=== PATIENT | female | born 1980 | race Hispanic/Latino ===

== ENCOUNTER 2016-09-11 21:14 | Emergency (ER) | payer OTHER, SELFPAY | END 2016-09-11 21:28 | disposition left against medical advice (07) | LOC: M ED 21:14 | DX: R51 Headache (principal); G51.0 Bell's palsy; F90.9 Attention-deficit hyperactivity disorder, unspecified type; Z53.21 Procedure and treatment not carried out due to patient leaving prior to being seen by health care provider ==

== ENCOUNTER 2016-09-11 21:32 | Outpatient (CLI) | payer OTHER, SELFPAY ==
[2016-09-11 23:01] LABS: MEAN CORPUSCULAR HEMOGLOBIN 23.4 pg (27.0-33.0); MEAN CORPUSCULAR HGB CONC 31.8 g/dl (32.0-36.5); MEAN CORPUSCULAR VOLUME 73.4 fl (80.0-96.0); RED CELL DISTRIBUTION WIDTH 16.2 % (11.5-14.5); WHITE BLOOD COUNT 6.4 K/mm3 (4.0-10.0)
[2016-09-11 23:24] LABS: ALBUMIN 2.7 GM/DL (3.2-5.2); ALBUMIN/GLOBULIN RATIO 0.75 (1.00-1.93); ALKALINE PHOSPHATASE 152 U/L (45-117); ALT/SGPT 12 U/L (12-78); ANION GAP 11 MEQ/L (8-16); AST/SGOT 9 U/L (15-37); BILIRUBIN,TOTAL 0.3 MG/DL (0.2-1.0); BLOOD UREA NITROGEN 6 MG/DL (7-18); CALCIUM LEVEL 9.1 MG/DL (8.5-10.1); CARBON DIOXIDE LEVEL 24 MEQ/L (21-32); CHLORIDE LEVEL 106 MEQ/L (98-107); CREATININE FOR GFR 0.59 MG/DL (0.55-1.02); GLOMERULAR FILTRATION RATE > 60.0 (>60); GLUCOSE, FASTING 81 MG/DL (70-105); POTASSIUM SERUM 3.8 MEQ/L (3.5-5.1); SODIUM LEVEL 141 MEQ/L (136-145); TOTAL PROTEIN 6.3 GM/DL (6.4-8.2); URIC ACID 3.6 MG/DL (2.6-6.0)
== END 2016-09-11 23:30 | disposition home or self-care (01) ==
LOC: M LDO 21:32
PROVIDERS: ATTEND Obstetrics & Gynecology
DX: O99.89 Other specified diseases and conditions complicating pregnancy, childbirth and the puerperium (principal); R51 Headache; R03.0 Elevated blood-pressure reading, without diagnosis of hypertension; H53.9 Unspecified visual disturbance; Z3A.39 39 weeks gestation of pregnancy

== ENCOUNTER → 2016-09-12 | Outpatient (REF) | payer OTHER, SELFPAY | LOC: M LAB REF 15:29 | PROVIDERS: ATTEND Obstetrics & Gynecology | DX: Z36 Encounter for antenatal screening of mother (principal) ==

== ENCOUNTER 2016-09-13 23:10 | Emergency (ER) | payer OTHER, SELFPAY ==
[2016-09-13] MEDS ORDERED: MORPHINE 2 MG/ML 1ML SYRINGE As Ordered ONE (23:50)
[2016-09-14 00:18] LABS: BASO % 0.3 % (0.0-1.0); EOS % 0.6 % (0.0-3.0); LARGE UNSTAINED CELL # 0.2 K/mm3 (0.0-0.4); LARGE UNSTAINED CELL % 2.1 % (0.0-4.0); LYMPH # 1.9 K/mm3 (1.5-4.5); LYMPH % 27.9 % (24.0-44.0); MEAN CORPUSCULAR HEMOGLOBIN 23.1 pg (27.0-33.0); MEAN CORPUSCULAR HGB CONC 31.5 g/dl (32.0-36.5); MEAN CORPUSCULAR VOLUME 73.3 fl (80.0-96.0); MONO # 0.3 K/mm3 (0.0-0.8); MONO % 4.5 % (0.0-5.0); NEUTROPHILS # 4.5 K/mm3 (1.8-7.7); NEUTROPHILS % 64.5 % (36.0-66.0); PLATELET COUNT, AUTOMATED 147 k/mm3 (150-450); RED CELL DISTRIBUTION WIDTH 16.1 % (11.5-14.5); WHITE BLOOD COUNT 6.9 K/mm3 (4.0-10.0)
[2016-09-14 00:27] LABS: ALBUMIN 2.7 GM/DL (3.2-5.2); ALBUMIN/GLOBULIN RATIO 0.63 (1.00-1.93); ALKALINE PHOSPHATASE 157 U/L (45-117); ALT/SGPT 16 U/L (12-78); ANION GAP 9 MEQ/L (8-16); AST/SGOT 10 U/L (15-37); BILIRUBIN,DIRECT < 0.1 MG/DL (0.0-0.2); BILIRUBIN,TOTAL 0.3 MG/DL (0.2-1.0); BLOOD UREA NITROGEN 9 MG/DL (7-18); CALCIUM LEVEL 8.5 MG/DL (8.5-10.1); CARBON DIOXIDE LEVEL 23 MEQ/L (21-32); CHLORIDE LEVEL 106 MEQ/L (98-107); CREATININE FOR GFR 0.71 MG/DL (0.55-1.02); GLOMERULAR FILTRATION RATE > 60.0 (>60); GLUCOSE, FASTING 92 MG/DL (70-105); MAGNESIUM LEVEL 1.8 MG/DL (1.8-2.4); POTASSIUM SERUM 3.6 MEQ/L (3.5-5.1); SODIUM LEVEL 138 MEQ/L (136-145); URIC ACID 4.1 MG/DL (2.6-6.0)
--- NOTE | 2016-09-14 00:40 | REPUSA ---
CLINICAL HISTORY: Murray's palsy. TECHNIQUE: Multiple axial brain CT scan sections were obtained from base to vertex without contrast a dministration. COMMENTS: The study shows normal configuration of sella turcica. There are no intra or extra-axial collections. There is no mass effect or midline shift. There is no evidence of hematoma formation. No hydrocephal us is present. No abnormal calcifications are noted. No significant abnormalities are seen either in the posterior fossa or supratentorial compartment. The sinuses and mastoid air cells are patent. IMPRESSION: No evidence of acute intracranial pathology. Thank you for your kind referral of this patient.
[2016-09-14] MEDS ORDERED: ACETAMINOPHEN 325 MG TAB As Ordered ONE (00:55)
[2016-09-14] MEDS ORDERED: ONDANSETRON 4MG/2ML VIAL (J2405) As Ordered ONE (00:56)
[2016-09-14] MEDS ORDERED: NITROFURANTOIN (MACROBID) 100 MG CAP As Ordered ONE (01:21)
--- NOTE | 2016-09-14 02:29 | EDDOCDS ---
Physician Documentation [facility] Name: Chel Cardoza Age: 35 yrs Sex: Female : 1980 Arrival Date: 09/13/2016 Time: 23:10 Bed 7 Private MD: Osbaldo James [facility] Disposition: 09/14/16 02:04 Discharged to Home/Self Care. Impression: Murray's palsy. - Condition is Stable. - Discharge Instructions: Murray Palsy. - Prescriptions for Prednisone 20 mg Oral Tablet - take 1 tablet by ORAL route as directed Day 1-3: 3 po, day 4-7: 2 po, day 8-10: 1 po; 20 tablet. - Medication Reconciliation, Local Pharmacy Hours form. - Follow up: Osbaldo James OB; When: Call to arrange an appointment; Reason: Continuance of care. Follow up: Petty Harrell MD; When: Call to arrange an appointment; Reason: Continuance of care. - Problem is new. - Symptoms have improved. Historical: - Allergies: no known allergies; - Home Meds: 1. Tylenol PM Oral 2 tablets as needed (Last dose: 09/13/2016 22:30) - PMHx: ADD; Murray's Palsy; Depression; - PSHx: ; - Social history: Smoking status: Patient states was never smoker of tobacco. No barriers to communication noted. - Family history: Not pertinent. - : The pt / caregiver states he / she is not on anticoagulants. Home medication list is obtained from the patient. - Exposure Risk Screening:: None identified. 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 4 in. (162.56 cm) (R); 23:29 BP 145 / 87 (auto/); kas2 23:30 Pulse 100 MON; Pulse Ox 97% ; kas2 23:44 BP 153 / 93 (auto/); kas2 23:45 Pulse 100 MON; Pulse Ox 99% ; kas2 09/14 00:12 BP 180 / 95 (auto/); kas2 00:12 Pulse 106 MON; Pulse Ox 95% ; kas2 00:43 BP 190 / 112 (auto/); kas2 00:43 Pulse 112 MON; Pulse Ox 97% ; kas2 00:51 BP 150 / 82 (auto/); kas2 00:51 Pulse 110 MON; Pulse Ox 99% ; kas2 00:59 BP 126 / 79 (auto/); kas2 00:59 Pulse 110 MON; Pulse Ox 99% ; kas2 01:14 BP 123 / 77 (auto/); kas2 01:14 Pulse 106 MON; Pulse Ox 98% ; kas2 01:14 BP 129 / 54; Pulse 99; Resp 18; Temp 98.0(O); Pulse Ox 100% on R/A; Pain 0/10; kas2 01:28 Pulse 102 MON; Pulse Ox 97% ; kas2 01:29 BP 131 / 58 (auto/); kas2 01:40 BP 139 / 84 (auto/); kas2 01:40 Pulse 110 MON; Pulse Ox 98% ; kas2 09/13 23:12 Body Mass Index 32.27 (85.28 kg, 162.56 cm) dd6 MDM: 09/13 23:49 Ambulance Assistant/Pulse Ox/q 15 min VS ordered. fg 23:49 Heart Tones ordered. fg 23:49 IV Saline Lock x 2 ordered. fg 23:49 Misc Service Delivery Consultant Order ordered. fg 23:49 morphine 2 mg IVP once ordered. fg 23:50 Basic Metabolic Profile Ordered. EDMS 23:50 CBC with Diff Ordered. EDMS 23:50 Liver Profile Ordered. EDMS 23:50 Magnesium Level Ordered. EDMS 23:50 Uric Acid Ordered. EDMS 23:50 Urinalysis Ordered. EDMS 23:50 Urine Random,Creatinine Ordered. EDMS 23:50 CT Head Without Contrast Ordered. EDMS 23:57 Misc Service Delivery Consultant Order complete. jl 09/14 00:53 Ondansetron 4 mg IVP once ordered. fg 00:53 Acetaminophen Tablet 650 mg PO once ordered. fg 01:19 TOTAL PROTEIN,RANDOM URINE Ordered. EDMS 01:44 Financial registration complete. hs2 Administered Medications: 00:18 Not Given (Patient Refused): morphine 2 mg IVP once kas2 01:00 Drug: Ondansetron 4 mg [ondansetron HCl 2 mg/mL intravenous solution (2 mL)] Route: nn1 IVP; Site: right antecubital; 01:00 Drug: Acetaminophen 650 mg [acetaminophen 325 mg tablet (2 tabs)] Route: PO; nn1 Signatures: Dispatcher [employer] EDCandy FortuneRN RN Ynes Evans, Spray Gun Striper Unit Bouchra Donaldson MD MD Whitney Ramirez, [facility] Reg 2 Krystle Tellez RN RN kas2 Nadeem Fatima RN nn1 The chart was reviewed and I authenticate all verbal orders and agree with the evaluation and treatment provided.Corrections: (The following items were deleted from the chart) 09/13 23:59 23:58 IODINE URINE RANDOM ordered. EDMS EDMS 09/14 00:53 00:52 IODINE URINE RANDOM ordered. EDMS EDMS MTDD
--- NOTE | 2016-09-14 02:29 | EDDOCDS ---
Nurse's Notes [facility] Name: Chel Cardoza Age: 35 yrs Sex: Female : 1980 Arrival Date: 09/13/2016 Time: 23:10 Bed 7 Private MD: Osbaldo James [facility] Diagnosis: Murray's palsy Presentation: 09/13 23:18 Presenting complaint: Patient states: noted left facial droop about one hour ago, also [facility] noting headache and lights flashing, reports history of [place] Palsy one year ago with different presentation of neck pain and numbness only. States she is 40-weeks , denies labor pain. The last date and time the patient was known to be well was was at 22:00 on September 13, 2016. An acute neurological deficit is present. The charge nurse has been notified. The patient has been moved to a treatment area. Adult Sepsis Screening: The patient does not have new or worsening altered mentation. Patient's respiratory rate is less than 22. Systolic blood pressure is greater than 100. Patient has a qSOFA score of 0- Negative Sepsis Screen. Suicide/Homicide risk assessment- the patient denies having any suicidal and/or homicidal ideations and does not present with any other emotional, behavioral or mental health complaints. Status: The patient is a dependent. Transition of care: patient was not received from another setting of care. 23:18 Acuity: FARZANA Level 2 [facility] 23:18 Method Of Arrival: Walkin/Carried/Asstd [facility] Triage Assessment: 23:22 The onset of the patients symptoms was less than three hours ago. General: Appears in [facility] no apparent distress, comfortable, Behavior is appropriate for age, cooperative. Pain: Location: head Pain currently is 4 out of 10 on a pain scale. HIV screening NA for this visit Offered previously. Neurological: Level of Consciousness is awake, alert, Oriented to person, place, time, Desulphuring Operator are equal bilaterally Moves all extremities. Gait is steady, Speech is normal, Facial droop on left, Facial symmetry: tongue is midline, Pupils are PERRLA, Reports blurred vision. Respiratory: Airway is patent Respiratory effort is even, unlabored, Respiratory pattern is regular, symmetrical. 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 Tylenol PM Oral 2 tablets as needed (Last dose: 09/13/2016 22:30) - PMHx: ADD; Murray's Palsy; Depression; - PSHx: ; - Social history: Smoking status: Patient states was never smoker of tobacco. No barriers to communication noted. - Family history: Not pertinent. - : The pt / caregiver states he / she is not on anticoagulants. Home medication list is obtained from the patient. - Exposure Risk Screening:: None identified. Screenin:58 Screening information is obtained from the patient. Fall risk: No risks identified. kas2 Assistance ADL's: requires no assistance with activities of daily living. Abuse/DV Screen: The patient / caregiver reports he/she is: not in a situation that causes fear, pain or injury. Nutritional screening: No deficits noted. Advance Directives: Currently, there is no health care proxy. There is no active DNR order. There is no living will. There is no Power of Fretted Instrument Inspector. home support is adequate. Assessment: 23:55 General: Appears in no apparent distress, comfortable, well nourished, well groomed, kas2 Behavior is appropriate for age, cooperative. Pain: Location: head Pain currently is 6 out of 10 on a pain scale. Neurological: Level of Consciousness is awake, alert, Oriented to person, place, time, Desulphuring Operator are equal bilaterally Moves all extremities. Speech is normal, Pupils are PERRLA. Cardiovascular: Capillary refill < 3 seconds Heart tones S1 S2 present Rhythm is sinus rhythm No ectopy. Respiratory: Airway is patent Respiratory effort is even, unlabored, Respiratory pattern is regular, symmetrical, Breath sounds are clear bilaterally. GI: Abdomen is gravid. Derm: Skin is intact, is healthy with good turgor, Skin is dry, Skin is pink, warm & dry. Skin temperature is warm. 23:55 Neurological: Facial droop on left. kas2 09/14 00:19 General: RN started to give morphine 2 mg IV and patient started to develop burning in kas2 her chest. RN stopped and did not give the rest of the morphine IV. Dr. Marquis aware.. 00:41 General: Patient complaining of nausea. BP 190/118 on right side manually and 150/84 on kas2 left side. Dr. Marquis aware. Patient states headache is almost gone. No apparent distress at this time. at bedside. Will continue to monitor.. 01:32 General: Appears in no apparent distress, comfortable, well nourished, well groomed, kas2 Behavior is appropriate for age, cooperative. Pain: Denies pain. Neurological: Level of Consciousness is awake, alert, Oriented to person, place, time, Desulphuring Operator are equal bilaterally Moves all extremities. Speech is normal, Facial droop on left, Pupils are PERRLA. Cardiovascular: Rhythm is sinus rhythm No ectopy. Respiratory: Airway is patent Respiratory effort is even, unlabored, Respiratory pattern is regular, symmetrical, Breath sounds are clear bilaterally. Derm: Skin is intact, is healthy with good turgor, Skin is dry, Skin is pink, warm & dry. Skin temperature is warm. Vital Signs: 09/13 23:12 BP 185 / 94; Pulse 117; Resp 18 S; Temp 97.2(T); Pulse Ox 100% on R/A; Weight 85.28 kg dd6 (R); Height 5 ft. 4 in. (162.56 cm) (R); 23:29 BP 145 / 87 (auto/); kas2 23:30 Pulse 100 MON; Pulse Ox 97% ; [facility] 23:44 BP 153 / 93 (auto/); [facility] 23:45 Pulse 100 MON; Pulse Ox 99% ; [facility] 09/14 00:12 BP 180 / 95 (auto/); kas2 00:12 Pulse 106 MON; Pulse Ox 95% ; kas2 00:43 BP 190 / 112 (auto/); kas2 00:43 Pulse 112 MON; Pulse Ox 97% ; [facility] 00:51 BP 150 / 82 (auto/); kas2 00:51 Pulse 110 MON; Pulse Ox 99% ; [facility] 00:59 BP 126 / 79 (auto/); [facility] 00:59 Pulse 110 MON; Pulse Ox 99% ; [facility] 01:14 BP 123 / 77 (auto/); [facility] 01:14 Pulse 106 MON; Pulse Ox 98% ; [facility] 01:14 BP 129 / 54; Pulse 99; Resp 18; Temp 98.0(O); Pulse Ox 100% on R/A; Pain 0/10; kas2 01:28 Pulse 102 MON; Pulse Ox 97% ; [facility] 01:29 BP 131 / 58 (auto/); kas2 01:40 BP 139 / 84 (auto/); kas2 01:40 Pulse 110 MON; Pulse Ox 98% ; kas2 09/13 23:12 Body Mass Index 32.27 (85.28 kg, 162.56 cm) dd6 Vitals: 09/13 23:12 Log In Time: September 13, 2016 at 23:10. dd6 23:13 RN notified that patient meets Red Flag criteria. dd6 09/14 00:18 Heart Tones 143BPM. kas2 ED Course: 09/13 23:12 Patient visited by Lyndon Fletcher, DAWNA. dd6 23:12 [facility] dd6 23:12 Patient moved to Waiting dd6 23:13 Krystle Tellez RN is Primary Nurse. dt4 23:13 Patient moved to 7 dt4 23:18 Bouchra Marquis MD is Attending Physician. fg 23:18 Patient visited by Bouchra Marquis MD. fg 23:21 Triage Initiated cj 23:54 Basic Metabolic Profile Sent. nn1 23:54 CBC with Diff Sent. nn1 23:54 Liver Profile Sent. nn1 23:58 property assessment monitor on. Pulse ox on. NIBP on. kas2 23:59 Patient visited by Krystle Tellez RN. kas2 23:59 Inserted saline lock: 20 gauge in left antecubital area and blood collected. The kas2 patient tolerated the procedure well. No procedures done that require assistance. 09/14 00:18 Inserted saline lock: 18 gauge in right antecubital area The patient tolerated the kas2 procedure well. 00:20 Patient visited by Krystle Tellez RN. kas2 00:50 CT Head Without Contrast Returned. EDMS 01:05 Patient visited by Krystle Tellez RN. kas2 01:33 Patient visited by Krystle Tellez RN. kas2 02:04 Osbaldo James, OB is Referral Physician. fg 02:04 Petty Harrell MD is Referral Physician. fg 02:26 Discontinued IV bleeding controlled, pressure dressing applied, No redness/swelling at kas2 site. 02:28 Patient visited by Krystle Tellez RN. kas2 02:28 The patient / caregiver is instructed regarding the plan of care and ED course. [facility] Administered Medications: 00:18 Not Given (Patient Refused): morphine 2 mg IVP once kas 01:00 Drug: Ondansetron 4 mg [ondansetron HCl 2 mg/mL intravenous solution (2 mL)] Route: nn1 IVP; Site: right antecubital; 01:00 Drug: Acetaminophen 650 mg [acetaminophen 325 mg tablet (2 tabs)] Route: PO; nn1 Order Results: Lab Order: Basic Metabolic Profile; SPEC'M 09/13/16 23:50 Test: GLUCOSE, FASTING; Value: 92; Range: 70-105; Units: MG/DL; Status: F Test: BLOOD UREA NITROGEN; Value: 9; Range: 7-18; Units: MG/DL; Status: F Test: CREATININE FOR GFR; Value: 0.71; Range: 0.55-1.02; Units: MG/DL; Status: F Test: GLOMERULAR FILTRATION RATE; Value: > 60.0; Range: >60; Status: F Test: SODIUM LEVEL; Value: 138; Range: 136-145; Units: MEQ/L; Status: F Test: POTASSIUM SERUM; Value: 3.6; Range: 3.5-5.1; Units: MEQ/L; Status: F Test: CHLORIDE LEVEL; Value: 106; Range: 98-107; Units: MEQ/L; Status: F Test: CARBON DIOXIDE LEVEL; Value: 23; Range: 21-32; Units: MEQ/L; Status: F Test: ANION GAP; Value: 9; Range: 8-16; Units: MEQ/L; Status: F Test: CALCIUM LEVEL; Value: 8.5; Range: 8.5-10.1; Units: MG/DL; Status: F Test Note: ; Units are mL/min/1.73 m2 Chronic Kidney Disease Staging per NKF: Stage I & II GFR >=60 Normal to Mildly Decreased Stage III GFR 30-59 Moderately Decreased Stage IV GFR 15-29 Severely Decreased Stage V GFR <15 Very Little GFR Left ESRD GFR <15 on WORLD RENOWNED 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 AND 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 OWNER Lab Order: CBC with Diff; SPEC'M 09/13/16 23:50 Test: WHITE BLOOD COUNT; Value: 6.9; Range: 4.0-10.0; Units: K/mm3; Status: F Test: RED BLOOD COUNT; Value: 4.28; Range: 4.00-5.40; Units: M/mm3; Status: F Test: HEMOGLOBIN; Value: 9.9; Range: 12.0-16.0; Abnormal: Below low normal; Units: g/dl; Status: F Test: HEMATOCRIT; Value: 31.4; Range: 36.0-47.0; Abnormal: Below low normal; Units: %; Status: F Test: MEAN CORPUSCULAR VOLUME; Value: 73.3; Range: 80.0-96.0; Abnormal: Below low normal; Units: fl; Status: F Test: MEAN CORPUSCULAR HEMOGLOBIN; Value: 23.1; Range: 27.0-33.0; Abnormal: Below low normal; Units: pg; Status: F Test: MEAN CORPUSCULAR HGB CONC; Value: 31.5; Range: 32.0-36.5; Abnormal: Below low normal; Units: g/dl; Status: F Test: RED CELL DISTRIBUTION WIDTH; Value: 16.1; Range: 11.5-14.5; Abnormal: Above high normal; Units: %; Status: F Test: PLATELET COUNT, AUTOMATED; Value: 147; Range: 150-450; Abnormal: Below low normal; Units: k/mm3; Status: F Test: NEUTROPHILS %; Value: 64.5; Range: 36.0-66.0; Units: %; Status: F Test: LYMPH %; Value: 27.9; Range: 24.0-44.0; Units: %; Status: F Test: MONO %; Value: 4.5; Range: 0.0-5.0; Units: %; Status: F Test: EOS %; Value: 0.6; Range: 0.0-3.0; Units: %; Status: F Test: BASO %; Value: 0.3; Range: 0.0-1.0; Units: %; Status: F Test: LARGE UNSTAINED CELL %; Value: 2.1; Range: 0.0-4.0; Units: %; Status: F Test: NEUTROPHILS #; Value: 4.5; Range: 1.8-7.7; Units: K/mm3; Status: F Test: LYMPH #; Value: 1.9; Range: 1.5-4.5; Units: K/mm3; Status: F Test: MONO #; Value: 0.3; Range: 0.0-0.8; Units: K/mm3; Status: F Test: EOS #; Value: 0.0; Range: 0.0-0.50; Units: K/mm3; Status: F Test: BASO #; Value: 0.0; Range: 0.0-0.2; Units: K/mm3; Status: F Test: LARGE UNSTAINED CELL #; Value: 0.2; Range: 0.0-0.4; Units: K/mm3; Status: F Lab Order: Liver Profile; [facility]09/13[facility]16 23:50 Test: AST/SGOT; Value: 10; Range: 15-37; Abnormal: Below low normal; Units: U/L; Status: F Test: ALT/SGPT; Value: 16; Range: 12-78; Units: U/L; Status: F Test: ALKALINE PHOSPHATASE; Value: 157; Range: 45-117; Abnormal: Above high normal; Units: U/L; Status: F Test: BILIRUBIN,TOTAL; Value: 0.3; Range: 0.2-1.0; Units: MG/DL; Status: F Test: BILIRUBIN,DIRECT; Value: < 0.1; Range: 0.0-0.2; Units: MG/DL; Status: F Test: TOTAL PROTEIN; Value: 7.0; Range: 6.4-8.2; Units: GM/DL; Status: F Test: ALBUMIN; Value: 2.7; Range: 3.2-5.2; Abnormal: Below low normal; Units: GM/DL; Status: F Test: ALBUMIN/GLOBULIN RATIO; Value: 0.63; Range: 1.00-1.93; Abnormal: Below low normal; Status: F Lab Order: Magnesium Level; 09/13/16 23:50 Test: MAGNESIUM LEVEL; Value: 1.8; Range: 1.8-2.4; Units: MG/DL; Status: F Lab Order: Uric Acid; 09/13/16 23:50 Test: URIC ACID; Value: 4.1; Range: 2.6-6.0; Units: MG/DL; Status: F Lab Order: Urinalysis; 09/13/16 23:50 Test: APPEARANCE, URINE; Value: CLEAR; Range: CLEAR; Status: F Test: COLOR, URINE; Value: STRAW; Range: YELLOW; Status: F Test: PH,URINE; Value: 6.0; Range: 5.0-9.0; Units: UNITS; Status: F Test: SPECIFIC GRAVITY URINE AUTO; Value: 1.005; Range: 1.002-1.035; Status: F Test: PROTEIN, URINE AUTO; Value: NEGATIVE; Range: NEGATIVE; Units: mg/dL; Status: F Test: GLUCOSE, URINE (UA) AUTO; Value: NEGATIVE; Range: NEGATIVE; Units: mg/dL; Status: F Test: KETONE, URINE AUTO; Value: NEGATIVE; Range: NEGATIVE; Units: mg/dL; Status: F Test: UROBILINOGEN, URINE AUTO; Value: 0.2; Range: 0.0-2.0; Units: mg/dL; Status: F Test: BILIRUBIN, URINE AUTO; Value: NEGATIVE; Range: NEGATIVE; Status: F Test: NITRITE, URINE AUTO; Value: NEGATIVE; Range: NEGATIVE; Status: F Test: LEUKOCYTE ESTERASE, URINE AUTO; Value: NEGATIVE; Range: NEGATIVE; Status: F Test: BLOOD, URINE BLOOD; Value: NEGATIVE; Range: NEGATIVE; Status: F Test: WBC, URINE AUTO; Value: 0; Range: 0-3; Units: /HPF; Status: F Test: RBC, URINE AUTO; Value: 1; Range: 0-3; Units: /HPF; Status: F Test: BACTERIA, URINE AUTO; Value: 2+; Range: NEGATIVE; Abnormal: Above high normal; Status: F Test: SQUAMOUS EPITHELIAL CELL UR AU; Value: 3; Range: 0-6; Units: /HPF; Status: F Test: HYALINE CAST, URINE AUTO; Value: 0; Range: 0-1; Units: /LPF; Status: F Lab Order: Urine Random,Creatinine; SPEC'M 09/13/16 23:50 Test: CREATININE,RANDOM URINE; Value: 41.3; Units: MG/DL; Status: F Lab Order: TOTAL PROTEIN,RANDOM URINE; SPEC'M 09/13/16 23:50 Test: TOTAL PROTEIN,RANDOM URINE; Value: 5.4; Range: 0.0-12.0; Units: MG/DL; Status: F Radiology Order: CT Head Without Contrast Test: CT Head Without Contrast REASON FOR EXAMINATION: headache, murray's palsy symptoms; ; CLINICAL HISTORY: Murray's palsy.; TECHNIQUE: Multiple axial brain CT scan sections were obtained from base to vertex without contrast a; dministration.; COMMENTS:; The study shows normal configuration of sella turcica. There are no intra or extra-axial collections.; There is no mass effect or midline shift. There is no evidence of hematoma formation. No hydrocephal; us is present. No abnormal calcifications are noted.; No significant abnormalities are seen either in the posterior fossa or supratentorial compartment.; The sinuses and mastoid air cells are patent.; IMPRESSION:; No evidence of acute intracranial pathology.; Thank you for your kind referral of this patient.; ; Outcome: 02:04 Discharge ordered by Provider. 02:26 Discharge Assessment: patient administered narcotics - no. The following High Risk kas2 Discharge criteria are identified: None. Discharged to home with significant other. Condition: good Condition: stable Condition: improved. CT Study completed. Property :Personal belongings accompany Pt. 02:28 Patient left the ED. kas2 Signatures: Dispatcher [employer] EDMS Lyndon Fletcher PCA PASSENGER CAR CLEANING SUPERVISOR dd6 Candy Hogue,RN RN [facility] Jerri Mckeon PA-C PA-C dt4 Nadeem FatimaRN RN nn1 Bouchra Marquis MD MD fg Smith, KimRN RN kas2 MTDD
--- NOTE | 2016-09-16 03:29 | EDDOCDS ---
Nurse's Notes [facility] Name: Chel Cardoza Age: 35 yrs Sex: Female : 1980 Arrival Date: 09/13/2016 Time: 23:10 Bed 7 Private MD: Osbaldo James [facility] Diagnosis: Murray's palsy Presentation: 09/13 23:18 Presenting complaint: Patient states: noted left facial droop about one hour ago, also [facility] noting headache and lights flashing, reports history of [place] Palsy one year ago with different presentation of neck pain and numbness only. States she is 40-weeks , denies labor pain. The last date and time the patient was known to be well was was at 22:00 on September 13, 2016. An acute neurological deficit is present. The charge nurse has been notified. The patient has been moved to a treatment area. Adult Sepsis Screening: The patient does not have new or worsening altered mentation. Patient's respiratory rate is less than 22. Systolic blood pressure is greater than 100. Patient has a qSOFA score of 0- Negative Sepsis Screen. Suicide/Homicide risk assessment- the patient denies having any suicidal and/or homicidal ideations and does not present with any other emotional, behavioral or mental health complaints. Status: The patient is a dependent. Transition of care: patient was not received from another setting of care. 23:18 Acuity: FARZANA Level 2 [facility] 23:18 Method Of Arrival: Walkin/Carried/Asstd [facility] Triage Assessment: 23:22 The onset of the patients symptoms was less than three hours ago. General: Appears in [facility] no apparent distress, comfortable, Behavior is appropriate for age, cooperative. Pain: Location: head Pain currently is 4 out of 10 on a pain scale. HIV screening NA for this visit Offered previously. Neurological: Level of Consciousness is awake, alert, Oriented to person, place, time, Rn Social Services are equal bilaterally Moves all extremities. Gait is steady, Speech is normal, Facial droop on left, Facial symmetry: tongue is midline, Pupils are PERRLA, Reports blurred vision. Respiratory: Airway is patent Respiratory effort is even, unlabored, Respiratory pattern is regular, symmetrical. 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 Gestational age from LMP: 40 weeks 1 day Historical: - Allergies: no known allergies; - Home Meds: 1. Tylenol PM Oral 2 tablets as needed (Last dose: 09/13/2016 22:30) - PMHx: ADD; Murray's Palsy; Depression; - PSHx: ; - Social history: Smoking status: Patient states was never smoker of tobacco. No barriers to communication noted. - Family history: Not pertinent. - : The pt / caregiver states he / she is not on anticoagulants. Home medication list is obtained from the patient. - Exposure Risk Screening:: None identified. Screenin:58 Screening information is obtained from the patient. Fall risk: No risks identified. kas2 Assistance ADL's: requires no assistance with activities of daily living. Abuse/DV Screen: The patient / caregiver reports he/she is: not in a situation that causes fear, pain or injury. Nutritional screening: No deficits noted. Advance Directives: Currently, there is no health care proxy. There is no active DNR order. There is no living will. There is no Power of Court Clerk. home support is adequate. Assessment: 23:55 General: Appears in no apparent distress, comfortable, well nourished, well groomed, kas2 Behavior is appropriate for age, cooperative. Pain: Location: head Pain currently is 6 out of 10 on a pain scale. Neurological: Level of Consciousness is awake, alert, Oriented to person, place, time, Rn Social Services are equal bilaterally Moves all extremities. Speech is normal, Pupils are PERRLA. Cardiovascular: Capillary refill < 3 seconds Heart tones S1 S2 present Rhythm is sinus rhythm No ectopy. Respiratory: Airway is patent Respiratory effort is even, unlabored, Respiratory pattern is regular, symmetrical, Breath sounds are clear bilaterally. GI: Abdomen is gravid. Derm: Skin is intact, is healthy with good turgor, Skin is dry, Skin is pink, warm & dry. Skin temperature is warm. 23:55 Neurological: Facial droop on left. kas2 09/14 00:19 General: RN started to give morphine 2 mg IV and patient started to develop burning in kas2 her chest. RN stopped and did not give the rest of the morphine IV. Dr. Marquis aware.. 00:41 General: Patient complaining of nausea. BP 190/118 on right side manually and 150/84 on kas2 left side. Dr. Marquis aware. Patient states headache is almost gone. No apparent distress at this time. at bedside. Will continue to monitor.. 01:32 General: Appears in no apparent distress, comfortable, well nourished, well groomed, kas2 Behavior is appropriate for age, cooperative. Pain: Denies pain. Neurological: Level of Consciousness is awake, alert, Oriented to person, place, time, Rn Social Services are equal bilaterally Moves all extremities. Speech is normal, Facial droop on left, Pupils are PERRLA. Cardiovascular: Rhythm is sinus rhythm No ectopy. Respiratory: Airway is patent Respiratory effort is even, unlabored, Respiratory pattern is regular, symmetrical, Breath sounds are clear bilaterally. Derm: Skin is intact, is healthy with good turgor, Skin is dry, Skin is pink, warm & dry. Skin temperature is warm. Vital Signs: 09/13 23:12 BP 185 / 94; Pulse 117; Resp 18 S; Temp 97.2(T); Pulse Ox 100% on R/A; Weight 85.28 kg dd6 (R); Height 5 ft. 4 in. (162.56 cm) (R); 23:29 BP 145 / 87 (auto/); kas2 23:30 Pulse 100 MON; Pulse Ox 97% ; [facility] 23:44 BP 153 / 93 (auto/); [facility] 23:45 Pulse 100 MON; Pulse Ox 99% ; [facility] 09/14 00:12 BP 180 / 95 (auto/); kas2 00:12 Pulse 106 MON; Pulse Ox 95% ; kas2 00:43 BP 190 / 112 (auto/); kas2 00:43 Pulse 112 MON; Pulse Ox 97% ; [facility] 00:51 BP 150 / 82 (auto/); kas2 00:51 Pulse 110 MON; Pulse Ox 99% ; [facility] 00:59 BP 126 / 79 (auto/); [facility] 00:59 Pulse 110 MON; Pulse Ox 99% ; [facility] 01:14 BP 123 / 77 (auto/); [facility] 01:14 Pulse 106 MON; Pulse Ox 98% ; [facility] 01:14 BP 129 / 54; Pulse 99; Resp 18; Temp 98.0(O); Pulse Ox 100% on R/A; Pain 0/10; kas2 01:28 Pulse 102 MON; Pulse Ox 97% ; [facility] 01:29 BP 131 / 58 (auto/); kas2 01:40 BP 139 / 84 (auto/); kas2 01:40 Pulse 110 MON; Pulse Ox 98% ; kas2 09/13 23:12 Body Mass Index 32.27 (85.28 kg, 162.56 cm) dd6 Vitals: 09/13 23:12 Log In Time: September 13, 2016 at 23:10. dd6 23:13 RN notified that patient meets Red Flag criteria. dd6 09/14 00:18 Heart Tones 143BPM. kas2 ED Course: 09/13 23:12 Patient visited by Lyndon Fletcher, DAWNA. dd6 23:12 [facility] dd6 23:12 Patient moved to Waiting dd6 23:13 Krystle Tellez RN is Primary Nurse. dt4 23:13 Patient moved to 7 dt4 23:18 Bouchra Marquis MD is Attending Physician. fg 23:18 Patient visited by Bouchra Marquis MD. fg 23:21 Triage Initiated cj 23:54 Basic Metabolic Profile Sent. nn1 23:54 CBC with Diff Sent. nn1 23:54 Liver Profile Sent. nn1 23:58 cube cutter on. Pulse ox on. NIBP on. kas2 23:59 Patient visited by Krystle Tellez RN. kas2 23:59 Inserted saline lock: 20 gauge in left antecubital area and blood collected. The kas2 patient tolerated the procedure well. No procedures done that require assistance. 09/14 00:18 Inserted saline lock: 18 gauge in right antecubital area The patient tolerated the kas2 procedure well. 00:20 Patient visited by Krystle Tellez RN. kas2 00:50 CT Head Without Contrast Returned. EDMS 01:05 Patient visited by Krystle Tellez RN. kas2 01:33 Patient visited by Krystle Tellez RN. kas2 02:04 Osbaldo James, OB is Referral Physician. fg 02:04 Petty Harrell MD is Referral Physician. fg 02:26 Discontinued IV bleeding controlled, pressure dressing applied, No redness/swelling at kas2 site. 02:28 Patient visited by Krystle Tellez RN. kas2 02:28 The patient / caregiver is instructed regarding the plan of care and ED course. kas2 03:24 [facility] Payment Agreement was scanned into [employer] and attached to record. hs2 03:32 Patient name changed from Chel\S\M\S\Cardoza\S\ to Chel\S\Sarah\S\Cardoza. EDMS 11:45 T-Sheet-- Draft Copy was scanned into [employer] and attached to record. gb 11:45 Radiology Report was scanned into [employer] and attached to record. gb Administered Medications: 00:18 Not Given (Patient Refused): morphine 2 mg IVP once kas2 01:00 Drug: Ondansetron 4 mg [ondansetron HCl 2 mg/mL intravenous solution (2 mL)] Route: nn1 IVP; Site: right antecubital; 01:00 Drug: Acetaminophen 650 mg [acetaminophen 325 mg tablet (2 tabs)] Route: PO; nn1 Order Results: Lab Order: Basic Metabolic Profile; SPEC'M 09/13/16 23:50 Test: GLUCOSE, FASTING; Value: 92; Range: 70-105; Units: MG/DL; Status: F Test: BLOOD UREA NITROGEN; Value: 9; Range: 7-18; Units: MG/DL; Status: F Test: CREATININE FOR GFR; Value: 0.71; Range: 0.55-1.02; Units: MG/DL; Status: F Test: GLOMERULAR FILTRATION RATE; Value: > 60.0; Range: >60; Status: F Test: SODIUM LEVEL; Value: 138; Range: 136-145; Units: MEQ/L; Status: F Test: POTASSIUM SERUM; Value: 3.6; Range: 3.5-5.1; Units: MEQ/L; Status: F Test: CHLORIDE LEVEL; Value: 106; Range: 98-107; Units: MEQ/L; Status: F Test: CARBON DIOXIDE LEVEL; Value: 23; Range: 21-32; Units: MEQ/L; Status: F Test: ANION GAP; Value: 9; Range: 8-16; Units: MEQ/L; Status: F Test: CALCIUM LEVEL; Value: 8.5; Range: 8.5-10.1; Units: MG/DL; Status: F Test Note: ; Units are mL/min/1.73 m2 Chronic Kidney Disease Staging per NKF: Stage I & II GFR >=60 Normal to Mildly Decreased Stage III GFR 30-59 Moderately Decreased Stage IV GFR 15-29 Severely Decreased Stage V GFR <15 Very Little GFR Left ESRD GFR <15 on SALES REPRESENTATIVE PUBLICATIONS Lab Order: CBC with Diff; SPEC'M 09/13/16 23:50 Test: WHITE BLOOD COUNT; Value: 6.9; Range: 4.0-10.0; Units: K/mm3; Status: F Test: RED BLOOD COUNT; Value: 4.28; Range: 4.00-5.40; Units: M/mm3; Status: F Test: HEMOGLOBIN; Value: 9.9; Range: 12.0-16.0; Abnormal: Below low normal; Units: g/dl; Status: F Test: HEMATOCRIT; Value: 31.4; Range: 36.0-47.0; Abnormal: Below low normal; Units: %; Status: F Test: MEAN CORPUSCULAR VOLUME; Value: 73.3; Range: 80.0-96.0; Abnormal: Below low normal; Units: fl; Status: F Test: MEAN CORPUSCULAR HEMOGLOBIN; Value: 23.1; Range: 27.0-33.0; Abnormal: Below low normal; Units: pg; Status: F Test: MEAN CORPUSCULAR HGB CONC; Value: 31.5; Range: 32.0-36.5; Abnormal: Below low normal; Units: g/dl; Status: F Test: RED CELL DISTRIBUTION WIDTH; Value: 16.1; Range: 11.5-14.5; Abnormal: Above high normal; Units: %; Status: F Test: PLATELET COUNT, AUTOMATED; Value: 147; Range: 150-450; Abnormal: Below low normal; Units: k/mm3; Status: F Test: NEUTROPHILS %; Value: 64.5; Range: 36.0-66.0; Units: %; Status: F Test: LYMPH %; Value: 27.9; Range: 24.0-44.0; Units: %; Status: F Test: MONO %; Value: 4.5; Range: 0.0-5.0; Units: %; Status: F Test: EOS %; Value: 0.6; Range: 0.0-3.0; Units: %; Status: F Test: BASO %; Value: 0.3; Range: 0.0-1.0; Units: %; Status: F Test: LARGE UNSTAINED CELL %; Value: 2.1; Range: 0.0-4.0; Units: %; Status: F Test: NEUTROPHILS #; Value: 4.5; Range: 1.8-7.7; Units: K/mm3; Status: F Test: LYMPH #; Value: 1.9; Range: 1.5-4.5; Units: K/mm3; Status: F Test: MONO #; Value: 0.3; Range: 0.0-0.8; Units: K/mm3; Status: F Test: EOS #; Value: 0.0; Range: 0.0-0.50; Units: K/mm3; Status: F Test: BASO #; Value: 0.0; Range: 0.0-0.2; Units: K/mm3; Status: F Test: LARGE UNSTAINED CELL #; Value: 0.2; Range: 0.0-0.4; Units: K/mm3; Status: F Lab Order: Liver Profile; SPEC'M 09/13/16 23:50 Test: AST/SGOT; Value: 10; Range: 15-37; Abnormal: Below low normal; Units: U/L; Status: F Test: ALT/SGPT; Value: 16; Range: 12-78; Units: U/L; Status: F Test: ALKALINE PHOSPHATASE; Value: 157; Range: 45-117; Abnormal: Above high normal; Units: U/L; Status: F Test: BILIRUBIN,TOTAL; Value: 0.3; Range: 0.2-1.0; Units: MG/DL; Status: F Test: BILIRUBIN,DIRECT; Value: < 0.1; Range: 0.0-0.2; Units: MG/DL; Status: F Test: TOTAL PROTEIN; Value: 7.0; Range: 6.4-8.2; Units: GM/DL; Status: F Test: ALBUMIN; Value: 2.7; Range: 3.2-5.2; Abnormal: Below low normal; Units: GM/DL; Status: F Test: ALBUMIN/GLOBULIN RATIO; Value: 0.63; Range: 1.00-1.93; Abnormal: Below low normal; Status: F Lab Order: Magnesium Level; SPEC'09/13/16 23:50 Test: MAGNESIUM LEVEL; Value: 1.8; Range: 1.8-2.4; Units: MG/DL; Status: F Lab Order: Uric Acid; SPEC'M 09/13/16 23:50 Test: URIC ACID; Value: 4.1; Range: 2.6-6.0; Units: MG/DL; Status: F Lab Order: Urinalysis; SPEC'M 09/13/16 23:50 Test: APPEARANCE, URINE; Value: CLEAR; Range: CLEAR; Status: F Test: COLOR, URINE; Value: STRAW; Range: YELLOW; Status: F Test: PH,URINE; Value: 6.0; Range: 5.0-9.0; Units: UNITS; Status: F Test: SPECIFIC GRAVITY URINE AUTO; Value: 1.005; Range: 1.002-1.035; Status: F Test: PROTEIN, URINE AUTO; Value: NEGATIVE; Range: NEGATIVE; Units: mg/dL; Status: F Test: GLUCOSE, URINE (UA) AUTO; Value: NEGATIVE; Range: NEGATIVE; Units: mg/dL; Status: F Test: KETONE, URINE AUTO; Value: NEGATIVE; Range: NEGATIVE; Units: mg/dL; Status: F Test: UROBILINOGEN, URINE AUTO; Value: 0.2; Range: 0.0-2.0; Units: mg/dL; Status: F Test: BILIRUBIN, URINE AUTO; Value: NEGATIVE; Range: NEGATIVE; Status: F Test: NITRITE, URINE AUTO; Value: NEGATIVE; Range: NEGATIVE; Status: F Test: LEUKOCYTE ESTERASE, URINE AUTO; Value: NEGATIVE; Range: NEGATIVE; Status: F Test: BLOOD, URINE BLOOD; Value: NEGATIVE; Range: NEGATIVE; Status: F Test: WBC, URINE AUTO; Value: 0; Range: 0-3; Units: /HPF; Status: F Test: RBC, URINE AUTO; Value: 1; Range: 0-3; Units: /HPF; Status: F Test: BACTERIA, URINE AUTO; Value: 2+; Range: NEGATIVE; Abnormal: Above high normal; Status: F Test: SQUAMOUS EPITHELIAL CELL UR AU; Value: 3; Range: 0-6; Units: /HPF; Status: F Test: HYALINE CAST, URINE AUTO; Value: 0; Range: 0-1; Units: /LPF; Status: F Lab Order: Urine Random,Creatinine; SPEC'M 09/13/16 23:50 Test: CREATININE,RANDOM URINE; Value: 41.3; Units: MG/DL; Status: F Lab Order: TOTAL PROTEIN,RANDOM URINE; SPEC'M 09/13/16 23:50 Test: TOTAL PROTEIN,RANDOM URINE; Value: 5.4; Range: 0.0-12.0; Units: MG/DL; Status: F Radiology Order: CT Head Without Contrast Test: CT Head Without Contrast REASON FOR EXAMINATION: headache, murray's palsy symptoms; ; CLINICAL HISTORY: Murray's palsy.; TECHNIQUE: Multiple axial brain CT scan sections were obtained from base to vertex without contrast a; dministration.; COMMENTS:; The study shows normal configuration of sella turcica. There are no intra or extra-axial collections.; There is no mass effect or midline shift. There is no evidence of hematoma formation. No hydrocephal; us is present. No abnormal calcifications are noted.; No significant abnormalities are seen either in the posterior fossa or supratentorial compartment.; The sinuses and mastoid air cells are patent.; IMPRESSION:; No evidence of acute intracranial pathology.; Thank you for your kind referral of this patient.; ; Outcome: 02:04 Discharge ordered by Provider. fg 02:26 Discharge Assessment: patient administered narcotics - no. The following High Risk kas2 Discharge criteria are identified: None. Discharged to home with significant other. Condition: good Condition: stable Condition: improved. CT Study completed. Property :Personal belongings accompany Pt. 02:28 Patient left the ED. kas2 Signatures: Dispatcher [employer] EDMS Ritika Roberts, Reg Reg gb Lyndon Fletcher, DAWNA IMPLEMENTATION LEAD dd6 Candy HogueRN RN Jerri Yates PA-C PA-C dt4 Nadeem FatimaRN RN nn1 Bouchra Marquis MD MD fg Stanton, Hillary, Reg Reg hs2 Krystle Tellez RN RN kas2 Chart Complete MTDD
--- NOTE | 2016-09-16 03:29 | EDDOCDS ---
Physician Documentation [facility] Name: Chel Cardoza Age: 35 yrs Sex: Female : 1980 Arrival Date: 09/13/2016 Time: 23:10 Bed 7 Private MD: Osbaldo James [facility] Disposition: 09/14/16 02:04 Discharged to Home/Self Care. Impression: Murray's palsy. - Condition is Stable. - Discharge Instructions: Murray Palsy. - Prescriptions for Prednisone 20 mg Oral Tablet - take 1 tablet by ORAL route as directed Day 1-3: 3 po, day 4-7: 2 po, day 8-10: 1 po; 20 tablet. - Medication Reconciliation, Local Pharmacy Hours form. - Follow up: Osbaldo James OB; When: Call to arrange an appointment; Reason: Continuance of care. Follow up: Petty Harrell MD; When: Call to arrange an appointment; Reason: Continuance of care. - Problem is new. - Symptoms have improved. Historical: - Allergies: no known allergies; - Home Meds: 1. Tylenol PM Oral 2 tablets as needed (Last dose: 09/13/2016 22:30) - PMHx: ADD; Murray's Palsy; Depression; - PSHx: ; - Social history: Smoking status: Patient states was never smoker of tobacco. No barriers to communication noted. - Family history: Not pertinent. - : The pt / caregiver states he / she is not on anticoagulants. Home medication list is obtained from the patient. - Exposure Risk Screening:: None identified. 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 4 in. (162.56 cm) (R); 23:29 BP 145 / 87 (auto/); kas2 23:30 Pulse 100 MON; Pulse Ox 97% ; kas2 23:44 BP 153 / 93 (auto/); kas2 23:45 Pulse 100 MON; Pulse Ox 99% ; kas2 09/14 00:12 BP 180 / 95 (auto/); kas2 00:12 Pulse 106 MON; Pulse Ox 95% ; kas2 00:43 BP 190 / 112 (auto/); kas2 00:43 Pulse 112 MON; Pulse Ox 97% ; kas2 00:51 BP 150 / 82 (auto/); kas2 00:51 Pulse 110 MON; Pulse Ox 99% ; kas2 00:59 BP 126 / 79 (auto/); kas2 00:59 Pulse 110 MON; Pulse Ox 99% ; kas2 01:14 BP 123 / 77 (auto/); kas2 01:14 Pulse 106 MON; Pulse Ox 98% ; kas2 01:14 BP 129 / 54; Pulse 99; Resp 18; Temp 98.0(O); Pulse Ox 100% on R/A; Pain 0/10; kas2 01:28 Pulse 102 MON; Pulse Ox 97% ; kas2 01:29 BP 131 / 58 (auto/); kas2 01:40 BP 139 / 84 (auto/); kas2 01:40 Pulse 110 MON; Pulse Ox 98% ; kas2 09/13 23:12 Body Mass Index 32.27 (85.28 kg, 162.56 cm) dd6 MDM: 09/13 23:49 Literacy Education Professor/Pulse Ox/q 15 min VS ordered. fg 23:49 Heart Tones ordered. fg 23:49 IV Saline Lock x 2 ordered. fg 23:49 Misc Boiler Repairman Order ordered. fg 23:49 morphine 2 mg IVP once ordered. fg 23:50 Basic Metabolic Profile Ordered. EDMS 23:50 CBC with Diff Ordered. EDMS 23:50 Liver Profile Ordered. EDMS 23:50 Magnesium Level Ordered. EDMS 23:50 Uric Acid Ordered. EDMS 23:50 Urinalysis Ordered. EDMS 23:50 Urine Random,Creatinine Ordered. EDMS 23:50 CT Head Without Contrast Ordered. ED[facility] 23:[facility] Order complete. jlm 09/14 00:53 Ondansetron 4 mg IVP once ordered. fg 00:53 Acetaminophen Tablet 650 mg PO once ordered. fg 01:19 TOTAL PROTEIN,RANDOM URINE Ordered. EDMS 01:44 Financial registration complete. hs2 03:24 [facility] Payment Agreement was scanned into [employer] and attached to record. hs2 11:45 T-Sheet-- Draft Copy was scanned into [employer] and attached to record. gb 11:45 Radiology Report was scanned into [employer] and attached to record. gb Administered Medications: 00:18 Not Given (Patient Refused): morphine 2 mg IVP once kas2 01:00 Drug: Ondansetron 4 mg [ondansetron HCl 2 mg/mL intravenous solution (2 mL)] Route: nn1 IVP; Site: right antecubital; 01:00 Drug: Acetaminophen 650 mg [acetaminophen 325 mg tablet (2 tabs)] Route: PO; nn1 Signatures: Dispatcher [employer] EDMS Ritika Roberts, Reg Reg gb Candy HogueRN RN Ynes Evans, [employer] Senior Sergeant Unit jlBouchra Nuñez MD MD Whitney Ramirez, Reg Reg hs2 Krystle Tellez RN RN kas2 Nadeem Fatima RN nn1 The chart was reviewed and I authenticate all verbal orders and agree with the evaluation and treatment provided.Corrections: (The following items were deleted from the chart) 09/13 23:59 23:58 IODINE URINE RANDOM ordered. EDMS EDMS 09/14 00:53 00:52 IODINE URINE RANDOM ordered. EDMS EDMS Attachments: 03:24 [facility] Payment Agreement hs2 11:45 T-Sheet-- Draft Copy gb Chart Complete MTDD
--- NOTE | 2016-09-16 03:29 | EDDOCDS ---
Physician Documentation [facility] Name: Chel Cardoza Age: 35 yrs Sex: Female : 1980 Arrival Date: 09/13/2016 Time: 23:10 Bed 7 Private MD: Osbaldo James [facility] Disposition: 09/14/16 02:04 Discharged to Home/Self Care. Impression: Murray's palsy. - Condition is Stable. - Discharge Instructions: Murray Palsy. - Prescriptions for Prednisone 20 mg Oral Tablet - take 1 tablet by ORAL route as directed Day 1-3: 3 po, day 4-7: 2 po, day 8-10: 1 po; 20 tablet. - Medication Reconciliation, Local Pharmacy Hours form. - Follow up: Osbaldo James OB; When: Call to arrange an appointment; Reason: Continuance of care. Follow up: Petty Harrell MD; When: Call to arrange an appointment; Reason: Continuance of care. - Problem is new. - Symptoms have improved. Historical: - Allergies: no known allergies; - Home Meds: 1. Tylenol PM Oral 2 tablets as needed (Last dose: 09/13/2016 22:30) - PMHx: ADD; Murray's Palsy; Depression; - PSHx: ; - Social history: Smoking status: Patient states was never smoker of tobacco. No barriers to communication noted. - Family history: Not pertinent. - : The pt / caregiver states he / she is not on anticoagulants. Home medication list is obtained from the patient. - Exposure Risk Screening:: None identified. 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 4 in. (162.56 cm) (R); 23:29 BP 145 / 87 (auto/); kas2 23:30 Pulse 100 MON; Pulse Ox 97% ; kas2 23:44 BP 153 / 93 (auto/); kas2 23:45 Pulse 100 MON; Pulse Ox 99% ; kas2 09/14 00:12 BP 180 / 95 (auto/); kas2 00:12 Pulse 106 MON; Pulse Ox 95% ; kas2 00:43 BP 190 / 112 (auto/); kas2 00:43 Pulse 112 MON; Pulse Ox 97% ; kas2 00:51 BP 150 / 82 (auto/); kas2 00:51 Pulse 110 MON; Pulse Ox 99% ; kas2 00:59 BP 126 / 79 (auto/); kas2 00:59 Pulse 110 MON; Pulse Ox 99% ; kas2 01:14 BP 123 / 77 (auto/); kas2 01:14 Pulse 106 MON; Pulse Ox 98% ; kas2 01:14 BP 129 / 54; Pulse 99; Resp 18; Temp 98.0(O); Pulse Ox 100% on R/A; Pain 0/10; kas2 01:28 Pulse 102 MON; Pulse Ox 97% ; kas2 01:29 BP 131 / 58 (auto/); kas2 01:40 BP 139 / 84 (auto/); kas2 01:40 Pulse 110 MON; Pulse Ox 98% ; kas2 09/13 23:12 Body Mass Index 32.27 (85.28 kg, 162.56 cm) dd6 MDM: 09/13 23:49 Shearing Machine Operator/Pulse Ox/q 15 min VS ordered. fg 23:49 Heart Tones ordered. fg 23:49 IV Saline Lock x 2 ordered. fg 23:49 Misc Market Garden Worker Order ordered. fg 23:49 morphine 2 mg IVP once ordered. fg 23:50 Basic Metabolic Profile Ordered. EDMS 23:50 CBC with Diff Ordered. EDMS 23:50 Liver Profile Ordered. EDMS 23:50 Magnesium Level Ordered. EDMS 23:50 Uric Acid Ordered. EDMS 23:50 Urinalysis Ordered. EDMS 23:50 Urine Random,Creatinine Ordered. EDMS 23:50 CT Head Without Contrast Ordered. EDMS 23:57 [facility] Work[facility] Order complete. jlm 09/14 00:53 Ondansetron 4 mg IVP once ordered. fg 00:53 Acetaminophen Tablet 650 mg PO once ordered. fg 01:19 TOTAL PROTEIN,RANDOM URINE Ordered. EDMS 01:44 Financial registration complete. hs2 03:24 [facility] Payment Agreement was scanned into MED[employer] and attached to record. hs2 11:45 T-Sheet-- Draft Copy was scanned into [employer] and attached to record. gb 11:45 Radiology Report was scanned into [employer] and attached to record. gb Administered Medications: 00:18 Not Given (Patient Refused): morphine 2 mg IVP once kas2 01:00 Drug: Ondansetron 4 mg [ondansetron HCl 2 mg/mL intravenous solution (2 mL)] Route: nn1 IVP; Site: right antecubital; 01:00 Drug: Acetaminophen 650 mg [acetaminophen 325 mg tablet (2 tabs)] Route: PO; nn1 Signatures: Dispatcher [employer] EDMS Ritika Roberts, Reg Reg gb Candy HogueRN RN Ynes Evans, Senior Revenue Accountant Unit jlBouchra Nuñez MD MD Whitney Ramirez, Reg Reg hs2 Krystle Tellez RN RN kas2 Nadeem Fatima RN nn1 The chart was reviewed and I authenticate all verbal orders and agree with the evaluation and treatment provided.Corrections: (The following items were deleted from the chart) 09/13 23:59 23:58 IODINE URINE RANDOM ordered. EDMS EDMS 09/14 00:53 00:52 IODINE URINE RANDOM ordered. EDMS EDMS Attachments: 03:24 [facility] Payment Agreement hs2 11:45 T-Sheet-- Draft Copy gb Chart Complete MTDD
== END 2016-09-14 02:28 | disposition home or self-care (01) ==
LOC: M ED 23:10
DX: O99.89 Other specified diseases and conditions complicating pregnancy, childbirth and the puerperium (principal); G51.0 Bell's palsy; R51 Headache; Z3A.40 40 weeks gestation of pregnancy; F90.9 Attention-deficit hyperactivity disorder, unspecified type; O99.343 Other mental disorders complicating pregnancy, third trimester
CPT/HCPCS: 36415; 70450; 80048; 80076; 81001; 82570; 83735; 84156; 84550; 85025; 93041; 96374; 99285; J2405

== ENCOUNTER 2016-09-20 15:50 | Inpatient (IN) | payer OTHER ==
[~2016-09-20] VITALS: Ht 162.6 cm; Wt 86.0 kg
[2016-09-20 16:09] VITALS: BP 124/81
[2016-09-20] MEDS ORDERED: BENA25CA2 PO (16:29)
[2016-09-20 18:06] VITALS: BP 134/76
[2016-09-20 19:02] VITALS: BP 133/77
[2016-09-20] MEDS ORDERED: LACTATED RINGER'S 1000 ML IV ONE (20:00)
[2016-09-20] MEDS ORDERED: LR 1,000 ML IV SCH (20:00)
[2016-09-20] MEDS ORDERED: BICITRA 30ML SOLN UDC PO ONE (20:00)
[2016-09-20] MEDS ORDERED: BUPIVACAINE HCL 0.25% 10 ML VIAL SC ONE (20:00)
[2016-09-20] MEDS ORDERED: ACETAMINOPHEN 650 MG SUPP PR ONE (20:15)
[2016-09-20 20:42] LABS: MEAN CORPUSCULAR HEMOGLOBIN 22.9 pg (27.0-33.0); MEAN CORPUSCULAR HGB CONC 31.1 g/dl (32.0-36.5); MEAN CORPUSCULAR VOLUME 73.4 fl (80.0-96.0); RED CELL DISTRIBUTION WIDTH 16.5 % (11.5-14.5); WHITE BLOOD COUNT 7.3 K/mm3 (4.0-10.0)
[2016-09-20 20:48] VITALS: BP 121/68
--- NOTE | 2016-09-20 21:33 | HPE ---
DATE OF ADMISSION: 09/20/2016 HISTORY: This lady is a 36-year-old 5, para 4, last menstrual period (LMP) 12/08/2015, estimated date of delivery (EDC) 09/13/2016 was admitted for induction of labor being at 41 weeks of gestation. She was represented as having assessment for totac. Her past history is in 1999 spontaneous vaginal delivery at 39 weeks, 7 pounds 14 ounces male. In 2000 spontaneous vaginal delivery 39 weeks, 6 pounds 7 ounces female, but she had a deep venous thrombosis (DVT) in her left leg at 22 weeks gestation. In 2004 at 40 weeks, spontaneous vaginal delivery 7 pounds 12 ounces, induction of labor as a social. In 2010 at 40 and 1 delivered by section a male 8 pounds 2 ounces for nonreassuring heart and failure to progress at 8 cm. Her risk factors is that she has had a previous section and we do not have operative note regards to layer closure. She had a previous history of DVT in the , which has not recurred, but she does have significant left hip pain for which she has been given a belt and physio. She had Murray's palsy and October of 2015 and she had a recent episode suggestive of Murray's palsy 1 week prior to induction of labor; was seen in emergency by neurology as well as having a CT, which was negative and it was put down to an atypical type migraine and it subsequently resolved. She also has a recent ascus Pap with HPV positive in 2014 and she is presently post dates. We reviewed her chart in detail and could not find gonorrhea cultures, therefore we repeated the gonorrhea culture. We also found that in bold letters she had indicated that if she had not gone into labor, that she requested a repeat section and tubal ligation. She denies that she was counseled regarding trial of labor after (TOLAC) up until this point when she came in for TOLAC induction. She was counseled today regarding the risks and benefits of TOLAC, the risks and benefits of repeat section including, but not completely hemorrhage, infection, perforation, , reoperation, remote possibility of hysterectomy, remote possibility of blood transfusion, remote possibility of laceration and fetus ending up in the NICU. We talked about the TOLAC in that there is a small risk of rupture of the uterus at which time there would be an emergency section, possibility of bleeding requiring blood transfusion, the also remote possibility of emergency hysterectomy and compromise ending up in the NICU, although that percentage was significantly less. The patient and her took some time to evaluate their options and elected to go ahead and have a repeat section with bilateral tubal ligation. Reviewed tubal ligation, its failure rate of less than 1% reviewed. The method with Filshie clips were reviewed. The risk of post tubal ligation syndrome reviewed. The risks of pelvic pain, increased bleeding with periods, decreased bleeding with period, increased leukorrhea, decreased leukorrhea. They still decided on having a repeat section and tubal ligation. The rest of the examination; she has a category one strip with no contractions. She is normocephalic, atraumatic. Neck: Full range of motion. Pupils equal and reactive to light. Distal pulses symmetric. No evidence of DVT, pulmonary embolism (PE) or superficial phlebitis. She is wearing sequential and her hip pain is related to movement. She has no wheezes or rhonchi. Her chest is clear bilaterally to bases. No costovertebral angle (CVA) tenderness. Symphysis fundus height is appropriate. The scar is intact and nontender. Four quadrant bowel sounds are noted. Pelvic examination was not performed as she is not in labor and is not having a TOLAC. There is no rashes or lesions or pruritus. She has no evidence to suggest any facial droop, eye lid lag or visual disturbances. She has no arthralgia or myalgia. No complaints of cough, wheezes, shortness of breath or dyspnea on exertion. She has no chest pain. No palpitations. She is not bruising. She is not bleeding. She is neuro complete. She has no history of incontinence, urgency or frequency. No nausea, vomiting, diarrhea or constipation. She has no diabetic issues. 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 Her past surgical history is section. Family history is noncontributory. Past medical history is Murary's palsy in October 2015 and recurrence of atypical migraines less than 1 week ago. She does not smoke, drink or abuse drugs. She is and there is no domestic violence. In summary we have a post age gestation with intense discussion having had come in for a TOLAC and requesting repeat section after discussing with anesthesia, discussing with the OR and discussing with unit, this patient is booked for tomorrow morning 09/21/2016 at 0730 hours. We spent well over an hour with the and the patient in resolving this issue.
[2016-09-20 22:07] VITALS: BP 107/63
[2016-09-21] VITALS (8 sets, daily range): BP systolic 106–131; BP diastolic 56–71
[2016-09-21] MEDS ORDERED: MORPHINE PRES-FREE INJ 10 MG/10 ML VIAL (J2274) As Ordered ONE (07:13)
[2016-09-21] MEDS ORDERED: OXYTOCIN INJ 10 UNITS/ML VIAL (J2590) As Ordered ONE (07:18)
[2016-09-21] MEDS ORDERED: NALOXONE INJ 0.4 MG/1 ML VIAL (J2310) IV PRN ×2 (07:56)
[2016-09-21] MEDS ORDERED: METOCLOPRAMIDE INJ 10MG/2ML VIAL (J2765) IV PRN ×2 (07:56→10:00)
[2016-09-21] MEDS ORDERED: ONDANSETRON 4MG/2ML VIAL (J2405) IV PRN ×2 (07:56→10:00)
[2016-09-21] MEDS ORDERED: NALBUPHINE HCL 10 MG/ML AMP (J2300) IV PRN (07:56)
[2016-09-21] MEDS ORDERED: PHENYLephrine HCL 500 MCG/5 ML (100MCG/ML) SYRINGE (J2370) As Ordered ONE ×2 (08:24→08:37)
[2016-09-21] MEDS ORDERED: METOCLOPRAMIDE INJ 10MG/2ML VIAL (J2765) As Ordered ONE (08:37)
[2016-09-21] MEDS ORDERED: ePHEDrine SULFATE 25 MG/5 ML(5MG/ML) SYRINGE As Ordered ONE (08:37)
[2016-09-21] MEDS ORDERED: dexameTHASONE 4 MG/ML 1ML VIAL (J1100) As Ordered ONE (08:39)
[2016-09-21 08:55] LABS: CORD GAS ABE A -5.7; CORD GAS HCO3 A 23.4 MEQ/L; CORD GAS O2 SAT A 25.9 %; CORD GAS PCO2 A 62.2 mmHg; CORD GAS PH A 7.194 UNITS; CORD GAS PO2 A 16.1 mmHg; CORD GAS SBC A 18.3 MEQ/L; CORD GAS TCO2 A 25.3 MEQ/L
[2016-09-21 08:58] LABS: CORD GAS ABE V -3.8; CORD GAS HCO3 V 22.7 MEQ/L; CORD GAS O2 SAT V 81.9 %; CORD GAS PCO2 V 46.3 mmHg; CORD GAS PH V 7.308 UNITS; CORD GAS PO2 V 38.8 mmHg; CORD GAS TCO2 V 24.1 MEQ/L
[2016-09-21] MEDS ORDERED: ADACEL/BOOSTRIX VACCINE (DIPHTH/PERTUSS/ACELL/TETANUS)0.5ML SYR (90715) IM ONE (09:00)
[2016-09-21] MEDS ORDERED: KETOROLAC 60 MG/2 ML VIAL (J1885) As Ordered ONE (09:12)
[2016-09-21] MEDS ORDERED: DOCUSATE SODIUM 100 MG CAP PO PRN (09:45)
[2016-09-21] MEDS ORDERED: MEASLES,MUMPS,RUBELLA VACCINE INJ (MMR-II) (90707) SC SCH (09:45)
[2016-09-21] MEDS ORDERED: ANUSOL HC CREAM 30GM TOP PRN (09:45)
[2016-09-21] MEDS ORDERED: RHOGAM 300 MCG (1500 IU) INJ (J2790) IM SCH (09:45)
[2016-09-21] MEDS ORDERED: MOM 30ML SUSPENSION UDC PO PRN (09:45)
[2016-09-21] MEDS ORDERED: PERCOCET 5MG/325MG TAB PO PRN ×2 (09:45→10:00)
[2016-09-21] MEDS ORDERED: fentaNYL 100 MCG/2 ML INJECTION (J3010) IV PRN (10:00)
[2016-09-21] MEDS ORDERED: LR 1,000 ML IV SCH (10:00)
--- NOTE | 2016-09-21 13:48 | RO ---
DATE OF PROCEDURE: 09/21/2016 PREOPERATIVE DIAGNOSES: Declined trial of labor after (TOLAC), repeat section, satisfied parity, bilateral tubal ligation by Filshie clip. Risk factors: She had had a previous section, a history of deep venous thrombosis (DVT) in at 21 weeks, Murray palsy with recurrent investigation 1 week ago, severe left hip pain, and postdates. POSTOPERATIVE DIAGNOSES: Declined trial of labor after (TOLAC), repeat section, satisfied parity, bilateral tubal ligation by Filshie clip. Risk factors: She had had a previous section, a history of deep venous thrombosis (DVT) in at 21 weeks, Murray palsy with recurrent investigation 1 week ago, severe left hip pain, and postdates. Plus, true knot in the cord at the umbilicus. SURGEON: Ayo Giles MD SUPERVISOR INSPECTION: Noe Soares ANESTHESIA: Was spinal plus local anesthetic for intraperitoneal procedures. ESTIMATED BLOOD LOSS: 500 mL. DESCRIPTION OF PROCEDURE: Under adequate anesthesia, prepped and draped in the supine position, Durán catheter in the bladder draining clear urine. Ancef 2 grams given preoperatively. Sequentials on board. Time-out performed. Low transverse incision was made through the previous Pfannenstiel incision, passing through abdominal layers, securing hemostasis. We noticed quite difficult because of the scar area and the bleeding in the subcutaneous tissue. On opening the peritoneal cavity, we noticed that the bladder was a bit high anteriorly. This was taken down. There was a thin lower uterine segment. Low transverse incision was made into the uterus. Artificial rupture of membranes (ARM) draining clear liquor. We delivered a live female weighing 7 pounds 8 ounces, 3414 grams. scores of 9 and 10 at 1 and 5 minutes, respectively. Arterial and venous pH were performed. The arterial pH 7.19, base excess -5.7, venous pH 7.30, base excess -3.8. The placenta was manually removed. There was some difficulty, but we did sweep out the membranes and the cavity until clean. The uterus contracted well down on Pitocin. The lower segment was oversewn in two layers, and there was some intermittent [id number] sutures placed because of excessive bleeding. With instrument and pad count correct, we reperitonealized the incisional site. Then, we asked the patient again to verify that she wanted a permanent sterilization. Both tubes were visualized to the fimbriated end. Bilateral Filshie clips applied circumferentially around the tubes. Good hemostasis was secured. The patient had huge varicose veins in the left adnexal area, which were left alone. We then revisited the incisional site, which was clean and dry, and then closed the abdomen. Running stitch for the peritoneum. Same for the fascia. Interrupted subcutaneous. Dexon to the skin. Marcaine 0.25% 10 mL and spray and tape. The patient was then taken to recovery in good condition.
[2016-09-22 02:20] VITALS: BP 111/58
[2016-09-22 07:05] LABS: MEAN CORPUSCULAR HEMOGLOBIN 22.6 pg (27.0-33.0); MEAN CORPUSCULAR HGB CONC 30.7 g/dl (32.0-36.5); MEAN CORPUSCULAR VOLUME 73.7 fl (80.0-96.0); RED CELL DISTRIBUTION WIDTH 16.9 % (11.5-14.5); WHITE BLOOD COUNT 10.4 K/mm3 (4.0-10.0)
[2016-09-22] MEDS: PRENATAL VITAMIN TAB PO SCH (07:55)
[2016-09-22 10:00] VITALS: BP 122/67
[2016-09-22] MEDS ORDERED: ADACEL/BOOSTRIX VACCINE (DIPHTH/PERTUSS/ACELL/TETANUS)0.5ML SYR (90715) IM ONE (12:00)
[2016-09-22] MEDS: PERCOCET 5MG/325MG TAB PO PRN ×2 (13:41→18:38)
[2016-09-22 14:38] VITALS: BP 111/64
[2016-09-22 18:15] VITALS: BP 139/83
[2016-09-22 22:00] VITALS: BP 138/74
[2016-09-23 02:00] VITALS: BP 136/76
[2016-09-23] MEDS: PERCOCET 5MG/325MG TAB PO PRN ×2 (02:00→12:22)
[2016-09-23] MEDS ORDERED: IBUPROFEN 400 MG TAB PO PRN (02:30)
[2016-09-23] MEDS ORDERED: MORPHINE 2 MG/ML 1ML SYRINGE IV PRN (03:45)
--- NOTE | 2016-09-23 04:50 | REPUSA ---
CLINICAL HISTORY: Abdominal pain. COMMENTS: Moderate large bowel fecal stasis. Moderate diffuse gaseous dilation of the remaining bowels. There is no evidence for free air, free fluid, masses, organomegaly or urinary calculi. Mild spondylosis. IMPRESSION: Constipation. Ileus. Thank you for your kind referral of this patient
[2016-09-23 05:46] VITALS: BP 118/64
[2016-09-23] MEDS: PRENATAL VITAMIN TAB PO SCH (09:00)
--- NOTE | 2016-09-23 11:38 | DS.PDOC ---
Discharge Summary General Date of Admission Sep 20, 2016 at 15:50 Date of Discharge [id number] Discharge Summary COMPLICATIONS/CHIEF COMPLAINT: S/P Section and Tubal Ligation at [address] Giles ADMISSION DIAGNOSES: Prior X1, when consented for TOLAC by Dr Giles, she decided on and tubal ligation rather than induction. DISCHARGE DIAGNOSES: ERCS + BTL HOSPITAL COURSE: Admitted at 41 weeks and decided on ERCS + BTL. Uncomplicated surgery and post-op course other than developed some upper abdominal pain and an abdominal XRAY showed a moderate amount of stool. Her discharge was slightly delayed from this morning until later on today until she had defecated. She is now doing so and passing lots of gas. DISCHARGE MEDICATIONS: Motrin, Tylenol, Percocet, Colace, Lanolin-knows to not mix the tylenol and the percocet PHYSICAL EXAMINATION ON DISCHARGE: see prog note from this AM. I also just examined her and her abdomen is not distended and she states that she feels much better than she did overnight. VITAL SIGNS: Please see below. DISCHARGE CONDITION: stable DISPOSITION: to home ACTIVITY: Nothing in the vagina for 6 weeks. Regular diet but add fiber and prunes/prune juice to aid in emptying. No submerging in water her vagina or incision for 4 weeks. No driving for 2 weeks. DISCHARGE PLAN AND INSTRUCTIONS: follow up at 1-2 weeks incision check with Dr Giles and also 6 week visit. Sessions Vital Signs/I&Os Vital Signs Date Time Temp Pulse Resp B/P Pulse Ox O2 Delivery O2 Flow Rate FiO2 09/23/16 05:46 97.8 92 18 118/64 09/23/16 04:30 100 Room Air Medications Scheduled PRN Diphenhydramine HCl (Benadryl) 25 Mg Cap 25 MG PO PRN PRN PRN ITCHING Allergies Coded Allergies: No Known Allergies (Unverified , 09/20/16) SESSIONSBARBI MD Sep 23, 2016 11:38
[2016-09-23] MEDS ORDERED: COLA100C PO (12:15)
[2016-09-23] MEDS ORDERED: PRENTAB9 PO (12:15)
[2016-09-23] MEDS ORDERED: OXYC1TAB23 PO (12:15)
== END 2016-09-23 12:45 | disposition home or self-care (01) | DRG 766 ==
LOC: M LDI 15:50 → M OBS 09-21 11:00
PROVIDERS: ADMIT Obstetrics & Gynecology; ATTEND Obstetrics & Gynecology
PROC: 0UL70DZ Occlusion of Bilateral Fallopian Tubes with Intraluminal Device, Open Approach (ICD-10-PCS; 2016-09-21)
PROC: 10D00Z1 Extraction of Products of Conception, Low, Open Approach (ICD-10-PCS; principal; 2016-09-21 07:43)
DX: O48.0 Post-term pregnancy (principal); Z37.0 Single live birth; Z3A.41 41 weeks gestation of pregnancy; O09.523 Supervision of elderly multigravida, third trimester; O34.211 Maternal care for low transverse scar from previous cesarean delivery; Z30.2 Encounter for sterilization; Z86.718 Personal history of other venous thrombosis and embolism; O69.2XX0 Labor and delivery complicated by other cord entanglement, with compression, not applicable or unspecified

== ENCOUNTER → 2017-02-16 | Outpatient (REF) | payer OTHER ==
[~2017-02-16] MED LIST: BENA25CA2 PO; COLA100C3 PO; OXYC1TAB23 PO; PRENTAB9 PO
== END ==
LOC: M LABNEURO 12:55
PROVIDERS: ATTEND Psychiatry & Neurology Neurology
DX: R79.89 Other specified abnormal findings of blood chemistry (principal)

== ENCOUNTER 2017-03-03 10:59 | Emergency (ER) | payer OTHER ==
[~2017-03-03] VITALS: Ht 162.6 cm; Wt 78.0 kg
[~2017-03-03 10:59] MED LIST changes: -COLA100C3 PO; +COLA100C5 PO
[2017-03-03] MEDS ORDERED: VITA10002 PO (11:08)
[2017-03-03] MEDS ORDERED: diphenhydrAMINE INJ 50MG/ML VIAL (J1200) IV STA (11:35)
[2017-03-03] MEDS ORDERED: METOCLOPRAMIDE INJ 10MG/2ML VIAL (J2765) IV ONE (11:45)
[2017-03-03] MEDS ORDERED: KETOROLAC 30 MG/ML VIAL (J1885) IV ONE (11:45)
[2017-03-03 17:27] VITALS: BP 117/84
--- NOTE | 2017-03-10 09:56 | REP ---
MR BRAIN WITHOUT CONTRAST: HISTORY: Left extremity weakness. COMPARISON: CT 10/31/2016 The examination is available for review at 9:45 a.m. this date. There are no areas of abnormal signal intensity in the brain. There is no intraparenchymal hemorrhage, infarct, mass or midline shift. The ventricular system is normal in appearance. There is no extracerebral collection. Minimal mucosal thickening is present in the ethmoid and right sphenoid sinuses. IMPRESSION: There is no intracranial lesion. Signed by Mainor Paula MD 03/10/2017 10:00 A
[2017-06-07] MEDS ORDERED: ATIV1TAB7 PO (15:35)
== END 2017-03-03 17:28 | disposition home or self-care (01) ==
LOC: M ED 10:59
DX: G43.809 Other migraine, not intractable, without status migrainosus (principal); R20.2 Paresthesia of skin; Z79.899 Other long term (current) drug therapy; Z88.8 Allergy status to other drugs, medicaments and biological substances
CPT/HCPCS: 70551; 96374; 96375; 99283; J1200; J1885; J2765

== ENCOUNTER → 2017-03-14 | Day surgery (SDC) | payer OTHER ==
[~2017-03-14] VITALS: Ht 162.6 cm; Wt 77.6 kg
[~2017-03-14] MED LIST changes: +ASPI1TAB PO; +ATIV1TAB10 PO; +ATIV1TAB7 PO; +BUPIVACAINE HCL 0.25% 30 ML VIAL As Ordered ONE; +CELE10TA PO; +CIPRODEX AS; +EFFE37.527 PO; +FERR1TAB8 PO; +FLUO10CA9 PO; +HYDR-643 PO; +HYDRO50TAB PO; +IODINE STRONG SOLN 15 ML BTL As Ordered ONE; +KLON0.5T PO; +LIDOCAINE 2% INJ 100 MG/5 ML SDV (FOR ANES.) As Ordered ONE; +LIDOCAINE W/EPINEPHRINE 1% 20ML VIAL As Ordered ONE; +LISI10TA4 PO; +LORA1TAB12 PO; +LR 1,000 ML IV ONE; +LR 1,000 ML IV SCH; +MACR100C43 PO; +MIDAZOLAM INJ 2 MG/2 ML VIAL (J2250) As Ordered ONE; +MIDAZOLAM INJ 2 MG/2 ML VIAL (J2250) IV SCH; +ONDANSETRON 4MG/2ML VIAL (J2405) As Ordered ONE; +ONDANSETRON 4MG/2ML VIAL (J2405) IV PRN; +PANT40TA2 PO; +PERCOCET 5MG/325MG TAB As Ordered ONE; +PERCOCET 5MG/325MG TAB PO PRN; +PROP10TAB PO; +PROPOFOL 200 MG/20 ML VIAL As Ordered ONE; +ROCURONIUM BROMIDE 50 MG/5 ML VIAL/SYRINGE As Ordered ONE; +TRAZO50TA PO; +VITA10002 PO; +VITA500T PO; +XANA0.25 PO; +fentaNYL 100 MCG/2 ML INJECTION (J3010) IV PRN; +fentaNYL 250 MCG/5 ML INJECTION (J3010) As Ordered ONE
[2017-03-14 10:07] LABS: MEAN CORPUSCULAR HEMOGLOBIN 25.9 pg (27.0-33.0); MEAN CORPUSCULAR HGB CONC 31.8 g/dl (32.0-36.5); MEAN CORPUSCULAR VOLUME 81.7 fl (80.0-96.0); RED CELL DISTRIBUTION WIDTH 15.2 % (11.5-14.5); WHITE BLOOD COUNT 7.8 K/mm3 (4.0-10.0)
[2017-03-14 10:26] LABS: CONTROL LINE HCG INT CTR LINE PRESENT
[2017-03-14] MEDS: MIDAZOLAM INJ 2 MG/2 ML VIAL (J2250) IV SCH ×2 (13:02→13:15)
[2017-03-14 14:30] VITALS: BP 120/62
--- NOTE | 2017-03-16 10:09 | RO ---
DATE OF PROCEDURE: 03/14/2017 PREPROCEDURE DIAGNOSES: 1. High grade squamous intraepithelial lesions on cervical biopsies. 2. 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 POSTPROCEDURE DIAGNOSES: 1. High grade squamous intraepithelial lesions on cervical biopsies. 2. 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 PROCEDURE: 1. Loop electrical excision procedure. 2. Bilateral salpingectomy via operative laparoscopy. SURGEON: Dr. Darci Peres CONSTRUCTION EQUIPMENT TECHNICIAN: Dr. Delbert Hays ANESTHESIA: General endotracheal. ESTIMATED BLOOD LOSS: 20 mL. DRAINS: 300 mL in Durán. FLUID REPLACEMENT: 1200 mL lactated ringers. SPECIMEN REMOVED: 1. LEEP biopsy specimen. 2. Endocervical curettage. 3. Right fallopian tube with Filshie clip. 4. Left fallopian tube with Filshie clip. INDICATION: Patient had high grade squamous intraepithelial lesions on cervical biopsy after colposcopy. Therefore, indication for LEEP procedure. She also had significant change in her pain status after the tubal ligation despite having undergone a delivery prior to this latest delivery. Patient was convinced that the tubal ligation procedure that she had undergone was causing her to have the pain issues that she was experiencing, therefore, she strongly desired and requested a laparoscopic salpingectomy and removal of the Filshie clips. PREOPERATIVE ANTIBIOTICS: None. DESCRIPTION OF OPERATION: After informed consent for both procedures was obtained in the clinic and confirmed on the morning of surgery and after preoperative review of her labs was performed, the patient was taken to the operating room with an IV in place where general endotracheal anesthesia was easily obtained. She was placed in the low lithotomy position and with no prep prior to the LEEP other than a cervical and vaginal fornix bath with Lugol solution. Speculum was placed. Lugol solution was placed all over the cervix and small area of non-staining cervical tissue was noted. 10 mL of lidocaine with epinephrine was then used to inject circumferentially avoiding the 3 and 9 o'clock vascular feeding areas to the cervix. An 8 mm loop was then attached to the Bovie device and after confirming that the patient was grounded, the LEEP specimen was removed from right to left without difficulty. Specimen was removed tagged at 12 with a suture and endocervical curettage was easily performed. Rollerball cautery was then used to obtain hemostasis for the LEEP cone bed. This was confirmed with inspection for approximately 2-3 minutes. All instruments were removed from the vagina at which time, the patient's vagina and abdomen were prepped in preparation for the operative laparoscopy. Patient's legs were brought down to have the knees almost level with the abdomen and she was prepped and draped as discussed. I then performed a surgical scrub as well (I was only using sterile operating room gloves for the LEEP as it is an office procedure). Patient was draped after the prep in a normal sterile fashion and 0.25% Marcaine without epinephrine was used just below the umbilicus. A 5 mm skin incision was performed tenting up the skin and a trocar was placed into the abdomen in the midline in standard fashion under direct visualization. CO2 insufflation was performed. Pneumoperitoneum was confirmed easily. Patient was placed in Trendelenburg and quick visual exploration of her upper abdomen and lower abdomen revealed normal upper abdomen , however both Filshie clips were scarred to the lateral quiros of the pelvis with obvious scarring and injected tissue surrounding. This presentation was atypical. The patient obvious had an unexpected hyperreaction to the tubal ligation healing process. Two bilateral left and right lower quadrant ports were then placed under direct visualization in the exact same manner into the abdomen just medial to the anterior superior iliac spine. The LigaSure was used to remove each of the fallopian tubes and Filshie clips bilaterally and each specimen was removed through the right lower port which was an 8 mm port. All other ports were 5 mm. Hemostasis was confirmed. A small amount of lysis of adhesions was performed bilaterally and all ports were removed under direct visualization after as much CO2 as possible was allowed to escape the abdomen. URS6 needle with an #0 Vicryl was used to close the right lower quadrant trocar site fascia with a single figure of eight suture and #4-0 Monocryl was used to close all skin suture sites. Dermabond was placed over each site. Speculum was then placed into the vagina and the LEEP cone bed was examined and found to be hemostatic. All instruments were removed. All counts were correct. The patient was awakened from general anesthesia in stable condition. [facility] CENTERClaude
== END | disposition home or self-care (01) ==
LOC: M SDC 09:34
PROVIDERS: ATTEND Obstetrics & Gynecology
DX: R87.613 High grade squamous intraepithelial lesion on cytologic smear of cervix (HGSIL) (principal); R10.2 Pelvic and perineal pain; G43.909 Migraine, unspecified, not intractable, without status migrainosus; M54.9 Dorsalgia, unspecified; F41.9 Anxiety disorder, unspecified; F32.9 Major depressive disorder, single episode, unspecified; R06.83 Snoring; Z86.718 Personal history of other venous thrombosis and embolism; Z86.69 Personal history of other diseases of the nervous system and sense organs
CPT/HCPCS: 36415; 57522; 58661; 84703; 85027; 86850; 86900; 86901; 88302; 88305; 88307; J2250; J2405; J3010

== ENCOUNTER 2017-03-17 14:38 | Emergency (ER) | payer OTHER ==
[~2017-03-17] VITALS: Ht 162.6 cm; Wt 2.2 kg
[~2017-03-17 14:38] MED LIST changes: -ASPI1TAB PO; -ATIV1TAB10 PO; -ATIV1TAB7 PO; -BUPIVACAINE HCL 0.25% 30 ML VIAL As Ordered ONE; -CELE10TA PO; -CIPRODEX AS; -EFFE37.527 PO; -FERR1TAB8 PO; -FLUO10CA9 PO; -HYDR-643 PO; -HYDRO50TAB PO; -IODINE STRONG SOLN 15 ML BTL As Ordered ONE; -KLON0.5T PO; -LIDOCAINE 2% INJ 100 MG/5 ML SDV (FOR ANES.) As Ordered ONE; -LIDOCAINE W/EPINEPHRINE 1% 20ML VIAL As Ordered ONE; -LISI10TA4 PO; -LORA1TAB12 PO; -LR 1,000 ML IV ONE; -LR 1,000 ML IV SCH; -MACR100C43 PO; -MIDAZOLAM INJ 2 MG/2 ML VIAL (J2250) As Ordered ONE; -MIDAZOLAM INJ 2 MG/2 ML VIAL (J2250) IV SCH; -ONDANSETRON 4MG/2ML VIAL (J2405) As Ordered ONE; -ONDANSETRON 4MG/2ML VIAL (J2405) IV PRN; -PANT40TA2 PO; -PERCOCET 5MG/325MG TAB As Ordered ONE; -PERCOCET 5MG/325MG TAB PO PRN; -PROP10TAB PO; -PROPOFOL 200 MG/20 ML VIAL As Ordered ONE; -ROCURONIUM BROMIDE 50 MG/5 ML VIAL/SYRINGE As Ordered ONE; -TRAZO50TA PO; -VITA500T PO; -XANA0.25 PO; -fentaNYL 100 MCG/2 ML INJECTION (J3010) IV PRN; -fentaNYL 250 MCG/5 ML INJECTION (J3010) As Ordered ONE
[2017-03-17] MEDS ORDERED: FIORICET TAB PO ONE (15:30)
[2017-03-17 15:37] LABS: BASO % 0.4 % (0.0-1.0); EOS # 0.1 K/mm3 (0.0-0.50); LARGE UNSTAINED CELL # 0.1 K/mm3 (0.0-0.4); LARGE UNSTAINED CELL % 0.8 % (0.0-4.0); LYMPH # 2.3 K/mm3 (1.5-4.5); LYMPH % 22.9 % (24.0-44.0); MEAN CORPUSCULAR HEMOGLOBIN 25.3 pg (27.0-33.0); MEAN CORPUSCULAR HGB CONC 31.7 g/dl (32.0-36.5); MONO # 0.4 K/mm3 (0.0-0.8); MONO % 3.7 % (0.0-5.0); NEUTROPHILS # 6.9 K/mm3 (1.8-7.7); NEUTROPHILS % 71.1 % (36.0-66.0); PLATELET COUNT, AUTOMATED 324 k/mm3 (150-450); RED CELL DISTRIBUTION WIDTH 15.1 % (11.5-14.5); WHITE BLOOD COUNT 9.8 K/mm3 (4.0-10.0)
[2017-03-17 15:41] LABS: ANION GAP 6 MEQ/L (8-16); BLOOD UREA NITROGEN 8 MG/DL (7-18); CALCIUM LEVEL 9.6 MG/DL (8.5-10.1); CARBON DIOXIDE LEVEL 25 MEQ/L (21-32); CHLORIDE LEVEL 108 MEQ/L (98-107); CREATININE FOR GFR 0.75 MG/DL (0.55-1.02); GLOMERULAR FILTRATION RATE > 60.0 (>60); GLUCOSE, FASTING 103 MG/DL (70-105); SODIUM LEVEL 139 MEQ/L (136-145)
[2017-03-17 15:50] LABS: CONTROL LINE HCG INT CTR LINE PRESENT
--- NOTE | 2017-03-17 16:42 | REP ---
Portable chest: Single view. History: Chest pain. Comparison study: September 23, 2016 Findings: The lungs are well inflated and clear. The pleural angles are sharp. Heart size is normal. EKG electrodes are seen. Pulmonary vasculature is not increased. No significant bony abnormality is appreciated. Oxygen delivery tubing is seen. Impression: Negative portable chest x-ray. Signed by Edil Alanis MD 03/17/2017 04:33 P
[2017-03-17] MEDS ORDERED: LORazepam 1 MG TAB As Ordered ONE (17:36)
[2017-03-17] MEDS ORDERED: MACR100C43 PO ×2 (17:37→21:10)
[2017-03-17] MEDS ORDERED: LORazepam 0.5 MG TAB PO ONE (17:45)
[2017-03-17] MEDS ORDERED: ISOVUE-370 76% 100ML VIAL (Q9967) As Ordered ONE (17:58)
--- NOTE | 2017-03-17 19:00 | REPUSA ---
HISTORY: NO PRIORS. CHEST PAIN, PALPITATIONS. RECENT LAP 03/20. TECHNIQUE: Axial CT imaging of chest with sagittal and coronal reformatted imaging for PE protocol wi th intravenous contrast enhancement. DLP= 511.3 mGy-cm. FINDINGS: Thoracic aorta is normal with no evidence of dissection or aneurysm. Pulmonary arteries ar e normal with no detectable evidence of pulmonary embolism. No mediastinal mass lesion or hilar mass lesions are seen. Lung windows demonstrate clear lungs with no pulmonary mass lesions, infiltrates, cystic lung disease , pneumothorax, or pleural effusion. Bone windows demonstrate no fracture or destructive bony lesion. Bilateral axillary lymph nodes are noted, largest measuring 1.1 cm. Upper abdominal structures are normal. IMPRESSION: 1. No evidence of pulmonary embolism or thoracic aortic aneurysm or dissection. 2. Small bilateral axillary lymphadenopathy noted with lymph nodes measuring 1.1 cm. 3. No mediastinal mass lesions and no pulmonary lesions identified. Negative CT examination of ches t.
[2017-03-17 20:57] VITALS: BP 127/76
--- NOTE | 2017-03-17 21:36 | ECGEPIP ---
Stationary ECG Study [facility] - ED Test Date: 2017-03-17 Pat Name: ROBYN ROBISON Department: Room: - Gender: F Collector Of Port: preeti : 1980 Requested By: RADHIKA De La Garza Order Number: [id number] Reading MD: Kathe Ospina Measurements Intervals [place] Rate: 99 P: 67 KS: 115 QRS: 65 QRSD: 86 T: 63 QT: 353 QTc: 454 Interpretive Statements SINUS RHYTHM WITH SHORT [place] INTERVAL NO PRIOR FOR COMPARISON Electronically Signed On 03-17-2017 21:36:38 EDT by Kathe Ospina
[2017-06-07] MEDS ORDERED: ATIV1TAB7 PO (15:35)
== END 2017-03-17 21:15 | disposition home or self-care (01) ==
LOC: M ED 14:38
DX: R07.9 Chest pain, unspecified (principal); N39.0 Urinary tract infection, site not specified; R06.02 Shortness of breath; R05 Cough; G43.909 Migraine, unspecified, not intractable, without status migrainosus; F41.9 Anxiety disorder, unspecified
CPT/HCPCS: 36415; 71010; 71275; 80048; 81001; 82550; 82553; 84703; 85025; 93005; 99285; Q9967

== ENCOUNTER 2017-04-19 16:47 | Emergency (ER) | payer OTHER ==
[~2017-04-19] VITALS: Ht 162.6 cm; Wt 79.5 kg
[~2017-04-19 16:47] MED LIST changes: +MACR100C43 PO
[2017-04-19] MEDS ORDERED: VITA500T PO (16:58)
[2017-04-19] MEDS ORDERED: FERR1TAB8 PO (16:58)
[2017-04-19] MEDS ORDERED: FLUO10CA9 PO (16:58)
[2017-04-19] MEDS ORDERED: HYDR-643 PO (16:58)
[2017-04-19] MEDS ORDERED: LISI10TA4 PO (16:58)
[2017-04-19] MEDS ORDERED: LORazepam 2 MG TAB PO STA (17:10)
[2017-04-19] MEDS ORDERED: ATIV1TAB10 PO (18:32)
[2017-04-19 19:04] VITALS: BP 129/90
[2017-06-07] MEDS ORDERED: ATIV1TAB7 PO (15:35)
== END 2017-04-19 19:08 | disposition home or self-care (01) ==
LOC: M ED 16:47
DX: F41.9 Anxiety disorder, unspecified (principal); E07.9 Disorder of thyroid, unspecified; R03.0 Elevated blood-pressure reading, without diagnosis of hypertension; Z79.899 Other long term (current) drug therapy; Z88.8 Allergy status to other drugs, medicaments and biological substances

== ENCOUNTER 2017-04-24 08:34 | Emergency (ER) | payer OTHER ==
[~2017-04-24] VITALS: Ht 162.6 cm; Wt 79.5 kg
[~2017-04-24 08:34] MED LIST changes: +ATIV1TAB10 PO; +FERR1TAB8 PO; +FLUO10CA9 PO; +HYDR-643 PO; +LISI10TA4 PO; +VITA500T PO
[2017-04-24] MEDS ORDERED: NS 500 ML IV ONE (09:30)
[2017-04-24] MEDS ORDERED: PANTOPRAZOLE 40MG INJ (PROTONIX) (C9113) IV ONE (09:30)
[2017-04-24 10:00] LABS: BASO % 0.5 % (0.0-1.0); EOS % 0.6 % (0.0-3.0); LARGE UNSTAINED CELL # 0.1 K/mm3 (0.0-0.4); LARGE UNSTAINED CELL % 1.4 % (0.0-4.0); LYMPH # 1.8 K/mm3 (1.5-4.5); LYMPH % 21.6 % (24.0-44.0); MEAN CORPUSCULAR HGB CONC 31.8 g/dl (32.0-36.5); MEAN CORPUSCULAR VOLUME 81.7 fl (80.0-96.0); MONO # 0.4 K/mm3 (0.0-0.8); MONO % 4.8 % (0.0-5.0); NEUTROPHILS # 5.6 K/mm3 (1.8-7.7); NEUTROPHILS % 71.1 % (36.0-66.0); PLATELET COUNT, AUTOMATED 294 k/mm3 (150-450); WHITE BLOOD COUNT 7.9 K/mm3 (4.0-10.0)
[2017-04-24 10:26] LABS: ALBUMIN/GLOBULIN RATIO 1.14 (1.00-1.93); ALKALINE PHOSPHATASE 105 U/L (45-117); ALT/SGPT 15 U/L (12-78); ANION GAP 8 MEQ/L (8-16); AST/SGOT 6 U/L (15-37); BILIRUBIN,DIRECT 0.1 MG/DL (0.0-0.2); BILIRUBIN,TOTAL 0.3 MG/DL (0.2-1.0); BLOOD UREA NITROGEN 8 MG/DL (7-18); CALCIUM LEVEL 9.4 MG/DL (8.5-10.1); CARBON DIOXIDE LEVEL 25 MEQ/L (21-32); CHLORIDE LEVEL 107 MEQ/L (98-107); CREATININE FOR GFR 0.72 MG/DL (0.55-1.02); GLOMERULAR FILTRATION RATE > 60.0 (>60); GLUCOSE, FASTING 100 MG/DL (70-105); SODIUM LEVEL 140 MEQ/L (136-145); TOTAL PROTEIN 7.5 GM/DL (6.4-8.2)
[2017-04-24 10:31] LABS: ERYTHROCYTE SEDIMENTATION RATE 18 mm/hr (0-20)
--- NOTE | 2017-04-24 10:40 | REP ---
CHEST, TWO VIEWS: COMPARISON: 03/17/2017. There is no evidence of acute infiltrate. No pleural effusion is seen. The heart is normal in size. The mediastinal silhouette is unremarkable. The visualized osseous structures are intact. IMPRESSION: No acute pulmonary disease. Signed by Darci Matias MD 04/24/2017 04:01 P
[2017-04-24] MEDS ORDERED: ALPRAZolam 0.25 MG TAB PO ONE (11:30)
[2017-04-24] MEDS ORDERED: PANT40TA2 PO (11:35)
[2017-04-24] MEDS ORDERED: XANA0.25 PO (11:35)
[2017-04-24 11:37] VITALS: BP 122/82
--- NOTE | 2017-04-24 19:40 | ECGEPIP ---
Stationary ECG Study [facility] - ED Test Date: 2017-04-24 Pat Name: ROBYN ROBISON Department: Room: - Gender: F Sock Liner: CLIFF : 1980 Requested By: Kathe Ospina Order Number: [id number] Reading MD: Juan Alberto Morrow Measurements Intervals [place] Rate: 88 P: 59 [place]: 114 QRS: 64 QRSD: 89 T: 74 QT: 369 QTc: 448 Interpretive Statements SINUS RHYTHM WITH SINUS ARRHYTHMIA WITH SHORT [place] INTERVAL INC. RBBB NONSPECIFIC T-WAVE ABNORMALITY Electronically Signed On 04-24-2017 19:40:27 EDT by Juan Alberto Morrow
[2017-06-07] MEDS ORDERED: ATIV1TAB7 PO (15:35)
== END 2017-04-24 11:48 | disposition home or self-care (01) ==
LOC: M ED 08:34
DX: K21.9 Gastro-esophageal reflux disease without esophagitis (principal); F41.9 Anxiety disorder, unspecified; I10 Essential (primary) hypertension; G43.909 Migraine, unspecified, not intractable, without status migrainosus; Z82.49 Family history of ischemic heart disease and other diseases of the circulatory system; Z86.718 Personal history of other venous thrombosis and embolism; Z79.899 Other long term (current) drug therapy; Z88.8 Allergy status to other drugs, medicaments and biological substances
CPT/HCPCS: 71020; 80048; 80076; 82550; 82553; 83690; 84443; 85025; 85652; 86140; 93005; 96374; 99284; C9113

== ENCOUNTER 2017-05-26 08:43 | Inpatient (IN) | payer OTHER ==
[~2017-05-26] VITALS: Ht 162.6 cm; Wt 78.0 kg
[~2017-05-26 08:43] MED LIST changes: +PANT40TA2 PO; +XANA0.25 PO
[2017-05-26] MEDS ORDERED: ASPI1TAB PO (08:51)
[2017-05-26] MEDS ORDERED: EFFE37.527 PO (08:51)
[2017-05-26] MEDS ORDERED: KLON0.5T PO (08:51)
[2017-05-26 10:01] LABS: MEAN CORPUSCULAR HEMOGLOBIN 26.6 pg (27.0-33.0); MEAN CORPUSCULAR HGB CONC 32.8 g/dl (32.0-36.5); MEAN CORPUSCULAR VOLUME 80.9 fl (80.0-96.0); RED CELL DISTRIBUTION WIDTH 14.9 % (11.5-14.5)
[2017-05-26 10:16] LABS: CONTROL LINE HCG INT CTR LINE PRESENT
[2017-05-26 10:21] LABS: METHADONE URINE NEGATIVE (NEGATIVE)
[2017-05-26 10:30] LABS: ALBUMIN/GLOBULIN RATIO 1.05 (1.00-1.93); ALKALINE PHOSPHATASE 117 U/L (45-117); ALT/SGPT 16 U/L (12-78); ANION GAP 8 MEQ/L (8-16); AST/SGOT 5 U/L (15-37); BILIRUBIN,DIRECT 0.1 MG/DL (0.0-0.2); BILIRUBIN,TOTAL 0.4 MG/DL (0.2-1.0); BLOOD UREA NITROGEN 8 MG/DL (7-18); CALCIUM LEVEL 9.1 MG/DL (8.5-10.1); CARBON DIOXIDE LEVEL 28 MEQ/L (21-32); CHLORIDE LEVEL 105 MEQ/L (98-107); CREATININE FOR GFR 0.75 MG/DL (0.55-1.02); GLOMERULAR FILTRATION RATE > 60.0 (>60); GLUCOSE, FASTING 107 MG/DL (70-105); POTASSIUM SERUM 3.8 MEQ/L (3.5-5.1); SODIUM LEVEL 141 MEQ/L (136-145); TOTAL PROTEIN 7.8 GM/DL (6.4-8.2)
[2017-05-26] MEDS ORDERED: MAALOX 30 ML SUSP *UDC PO PRN (12:00)
[2017-05-26] MEDS ORDERED: traZODone 50 MG TAB PO PRN (12:00)
[2017-05-26] MEDS ORDERED: ACETAMINOPHEN TAB 650MG DOSE (2X325MG) PO PRN (12:00)
[2017-05-26] MEDS ORDERED: MOM 30ML SUSPENSION UDC PO PRN (12:00)
[2017-05-26 13:46] VITALS: BP 135/82
[2017-05-26] MEDS ORDERED: CitaloPRAM (CeleXA) 10 MG TABLET PO ONE (16:30)
[2017-05-26] MEDS: LORazepam 1 MG TAB PO PRN (17:05)
[2017-05-26] MEDS ORDERED: QUEtiapine FUMARATE 200 MG TAB PO SCH (21:00)
[2017-05-27 07:09] VITALS: BP 143/87
[2017-05-27] MEDS: CitaloPRAM (CeleXA) 10 MG TABLET PO SCH (08:38)
[2017-05-27] MEDS: hydrOXYzine 25 MG TAB PO SCH ×2 (09:52→21:28)
[2017-05-27] MEDS: LORazepam 1 MG TAB PO PRN (17:51)
[2017-05-27 18:10] VITALS: BP 99/63
[2017-05-27] MEDS: AUGMENTIN 875 MG TAB PO SCH (21:28)
[2017-05-28 06:23] VITALS: BP 132/77
[2017-05-28] MEDS: hydrOXYzine 25 MG TAB PO SCH ×2 (07:53→21:49)
[2017-05-28] MEDS: CitaloPRAM (CeleXA) 10 MG TABLET PO SCH (07:53)
[2017-05-28] MEDS: AUGMENTIN 875 MG TAB PO SCH ×2 (08:58→21:49)
[2017-05-28] MEDS: LORazepam 1 MG TAB PO PRN (09:22)
[2017-05-28] MEDS ORDERED: MIRALAX *UNIT DOSE* 17GM PACKET PO PRN (10:15)
--- NOTE | 2017-05-28 13:22 | MHIPN ---
DATE: 05/28/2017 Ms. Cardoza is feeling better today. No significant difficulties with her medication. I have raised her Celexa to 20 mg and placed her on Atarax, on twice a day daily dosing. She is not having any present panic attacks and seems to be tolerating medicine well. MENTAL STATUS EXAMINATION: Speech is normal. Thought process is normal. No loose associations. No abnormal psychotic thoughts. Judgment and insight are intact, fully oriented. Recent and remote memory are intact. No disturbances of attention or concentration. No disturbances of language. Full fund of knowledge. Mood is improved. Affect is brighter. Continue patient on citalopram and Atarax. The patient has a history of difficulties with past medications. DIAGNOSIS: Panic disorder.
[2017-05-28 18:22] VITALS: BP 130/81
--- NOTE | 2017-05-28 22:04 | MHHPE ---
DATE OF ADMISSION: 05/27/2017 This 36-year-old white female states she has really bad anxiety with bad thoughts and wanted to hang herself yesterday. She feels so desperate because her anxiety attacks occur in waves where she feels chest pressure, pain, choking sensation, stomach difficulties and dizziness. She has had this condition for two months. She states she started when she had a migraine headache and had a bad reaction to the medicine given to her in the emergency room. When she returned home from the emergency room, she began to have panic attacks. She has always had general anxiety. PSYCHIATRIC HISTORY: Negative. LEGAL HISTORY: Negative. She was treated medically at [facility] and psychiatrically through telepsychiatry, as well as a counselor. PAST MEDICATIONS: Included Zoloft, which she was on for a week and made her feel like a zombie. Wellbutrin made her anxiety worse. She was on it for a week. Prozac made her cry. She was on it for 1 1/2 weeks. Effexor, she states, made her panic attacks worse and she was started yesterday after she arrived on Celexa by Dr. Soriano. She was also given Seroquel, which also last night states made her feel sleepy and numb. MENTAL STATUS EXAM: She denies hallucinations or delusions, obsessions, compulsions or phobias. Her speech is normal. No disturbance of thought processes. No loose associations. No abnormal or psychotic thoughts. Judgment and insight are fair. She is fully oriented. Recent and remote memory intact. Attention and concentration are fair. No disturbance of language. Full fund of knowledge. Mood is anxious. Affect is pained decision. Plan today to discontinue Seroquel. Maintain the patient on Celexa 10 mg at the moment and addition of Atarax 25 mg twice a day. Suggest that the patient needs to stay on her medications longer and that her anxiety condition is forcing her to discontinue numerous medications prior to them being effective. DIAGNOSIS: 1. Panic disorder, rule out major depression.
[2017-05-29] MEDS: LORazepam 1 MG TAB PO PRN ×3 (05:52→23:09)
[2017-05-29 06:40] VITALS: BP 143/75
[2017-05-29] MEDS: hydrOXYzine 25 MG TAB PO SCH ×2 (08:43→21:53)
[2017-05-29] MEDS: CitaloPRAM (CeleXA) 20 MG TAB PO SCH (08:43)
[2017-05-29] MEDS: AUGMENTIN 875 MG TAB PO SCH ×2 (08:44→21:00)
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
[2017-05-29 14:38] VITALS: BP 160/95
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
[2017-05-29 18:00] VITALS: BP 124/79
[2017-05-29 22:00] VITALS: BP 112/84
[2017-05-30 06:18] VITALS: BP 130/88
[2017-05-30] MEDS: CitaloPRAM (CeleXA) 20 MG TAB PO SCH (09:00)
[2017-05-30] MEDS: AUGMENTIN 875 MG TAB PO SCH ×2 (09:00→20:40)
[2017-05-30] MEDS: hydrOXYzine 25 MG TAB PO SCH (09:01)
[2017-05-30] MEDS: LORazepam 1 MG TAB PO PRN ×2 (11:24→21:28)
[2017-05-30 12:21] VITALS: BP 130/84
[2017-05-30] MEDS ORDERED: PROPRANOLOL 10 MG TAB PO PRN (13:45)
[2017-05-30 18:00] VITALS: BP 122/64
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
--- NOTE | 2017-05-30 21:15 | ECGEPIP ---
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
[2017-05-31 00:01] VITALS: BP 160/76
[2017-05-31 06:57] VITALS: BP 125/80
[2017-05-31] MEDS: CitaloPRAM (CeleXA) 10 MG TABLET PO SCH (08:19)
[2017-05-31] MEDS: LORazepam 1 MG TAB PO PRN (08:19)
[2017-05-31] MEDS: AUGMENTIN 875 MG TAB PO SCH ×2 (09:00→21:00)
[2017-05-31 18:00] VITALS: BP 148/90
[2017-05-31 21:01] VITALS: BP 128/78
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
[2017-06-01] MEDS: LORazepam 1 MG TAB PO PRN ×2 (06:11→16:29)
[2017-06-01 06:19] VITALS: BP 125/66
[2017-06-01] MEDS: AUGMENTIN 875 MG TAB PO SCH ×2 (08:12→21:00)
[2017-06-01] MEDS: CitaloPRAM (CeleXA) 10 MG TABLET PO SCH (08:12)
[2017-06-01] MEDS ORDERED: traZODone 100 MG TAB PO PRN (13:30)
[2017-06-01] MEDS ORDERED: traZODone 50 MG TAB PO PRN (13:45)
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
[2017-06-01] MEDS: CIPRODEX OTIC SUSP 7.5ML AS SCH ×2 (15:51→21:10)
[2017-06-01 18:00] VITALS: BP 134/79
[2017-06-02 06:28] VITALS: BP 144/81
[2017-06-02] MEDS: CitaloPRAM (CeleXA) 10 MG TABLET PO SCH (08:12)
[2017-06-02] MEDS: CIPRODEX OTIC SUSP 7.5ML AS SCH (08:12)
[2017-06-02] MEDS: AUGMENTIN 875 MG TAB PO SCH (09:00)
[2017-06-02] MEDS: LORazepam 1 MG TAB PO PRN (09:04)
[2017-06-02] MEDS ORDERED: CIPRODEX AS (11:06)
[2017-06-02] MEDS ORDERED: TRAZO50TA PO (11:06)
[2017-06-02] MEDS ORDERED: PROP10TAB PO (11:06)
[2017-06-02] MEDS ORDERED: LORA1TAB12 PO (11:06)
[2017-06-02] MEDS ORDERED: CELE10TA PO (11:06)
[2017-06-02] MEDS ORDERED: HYDRO50TAB PO (11:24)
[2017-06-02] MEDS ORDERED: hydrOXYzine 50 MG TAB PO PRN (11:30)
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
[2017-06-07] MEDS ORDERED: ATIV1TAB7 PO (15:35)
== END 2017-06-02 15:10 | disposition home or self-care (01) | DRG 880 ==
LOC: M ED 08:43 → M ED INP 11:56 → M PSY 13:35
PROVIDERS: ADMIT Psychiatry & Neurology Child & Adolescent Psychiatry; ATTEND Psychiatry & Neurology Psychiatry
DX: F41.0 Panic disorder [episodic paroxysmal anxiety] (principal); Z79.82 Long term (current) use of aspirin; Z79.899 Other long term (current) drug therapy; Z88.8 Allergy status to other drugs, medicaments and biological substances; K21.9 Gastro-esophageal reflux disease without esophagitis; F41.9 Anxiety disorder, unspecified; G43.909 Migraine, unspecified, not intractable, without status migrainosus; H66.92 Otitis media, unspecified, left ear

== ENCOUNTER → 2017-07-16 | Outpatient (CLI) | payer OTHER ==
[~2017-07-16] MED LIST changes: +ASPI1TAB PO; +ATIV1TAB7 PO; +CELE10TA PO; +CIPRODEX AS; +EFFE37.527 PO; +HYDRO50TAB PO; +KLON0.5T PO; +LORA1TAB12 PO; +PROP10TAB PO; +TRAZO50TA PO
--- NOTE | 2017-07-16 13:56 | REP ---
LUMBAR SPINE, FIVE VIEWS: HISTORY: Back pain. There is no acute fracture or subluxation. The L4-5 intervertebral disc is decreased in height consistent with disc degeneration. The facet joints are normal in appearance. IMPRESSION: Degenerative change as described above. Signed by Mainor Paula MD 07/16/2017 02:05 P
--- NOTE | 2017-07-16 13:57 | REP ---
LEFT HIP, TWO VIEWS: HISTORY: Hip pain. There is no acute fracture or dislocation. The joint space is normal in appearance. IMPRESSION: There is no acute fracture or dislocation. Signed by Mainor Paula MD 07/16/2017 02:05 P
== END ==
LOC: M LRY 11:16
PROVIDERS: ATTEND Nurse Practitioner Family
DX: M54.5 Low back pain (principal); M25.552 Pain in left hip; M51.36 Other intervertebral disc degeneration, lumbar region
CPT/HCPCS: 72110; 73502; 96372; G0463; J1885

== ENCOUNTER → 2017-10-31 | Outpatient (REF) | payer OTHER | LOC: M SFHCLERA 19:53 | DX: E07.89 Other specified disorders of thyroid (principal) ==

== ENCOUNTER → 2018-01-09 | Outpatient (CLI) | payer OTHER | LOC: M RAD 18:30 | DX: R19.09 Other intra-abdominal and pelvic swelling, mass and lump (principal) | CPT/HCPCS: 74176 ==

== ENCOUNTER 2018-02-21 06:25 | Day surgery (SDC) | payer OTHER ==
[2018-02-21] MEDS ORDERED: LR 1,000 ML IV ×2 (06:30→09:45)
[2018-02-21 06:55] LABS: HEMATOCRIT 41.3 % (36.0-47.0); HEMOGLOBIN 12.9 g/dl (12.0-15.5); MEAN CORPUSCULAR HEMOGLOBIN 25.5 pg (27.0-33.0); MEAN CORPUSCULAR HGB CONC 31.2 g/dl (32.0-36.5); MEAN CORPUSCULAR VOLUME 81.6 fl (80.0-96.0); PLATELET COUNT, AUTOMATED 331 10^3/uL (150-450); RED BLOOD COUNT 5.06 10^6/uL (4.00-5.40); RED CELL DISTRIBUTION WIDTH 14.5 % (11.5-14.5); WHITE BLOOD COUNT 9.6 10^3/uL (4.0-10.0)
[2018-02-21 07:08] LABS: CONTROL LINE HCG INT CTR LINE PRESENT; HCG, SERUM QUALITATIVE NEGATIVE (NEGATIVE)
[2018-02-21] MEDS ORDERED: fentaNYL 250 MCG/5 ML INJECTION (J3010) As Ordered (07:12)
[2018-02-21] MEDS ORDERED: PROPOFOL 200 MG/20 ML VIAL As Ordered (07:12)
[2018-02-21] MEDS ORDERED: LIDOCAINE 2% INJ 100 MG/5 ML SDV (FOR ANES.) As Ordered (07:12)
[2018-02-21] MEDS ORDERED: ROCURONIUM BROMIDE 50 MG/5 ML VIAL As Ordered (07:12)
[2018-02-21] MEDS ORDERED: MIDAZOLAM INJ 2 MG/2 ML VIAL (J2250) As Ordered ×2 (07:13→07:34)
[2018-02-21] MEDS: BUPIVACAINE HCL 0.25% 30 ML VIAL As Ordered (08:30)
[2018-02-21] MEDS ORDERED: ONDANSETRON 4MG/2ML VIAL (J2405) As Ordered (08:33)
[2018-02-21] MEDS ORDERED: dexameTHASONE 4 MG/ML 1ML VIAL (J1100) As Ordered ×2 (08:33)
[2018-02-21] MEDS ORDERED: KETOROLAC 60 MG/2 ML VIAL (J1885) As Ordered (08:33)
[2018-02-21] MEDS ORDERED: NEOSTIGMINE 10 MG/10 ML VIAL (J2710) As Ordered (08:33)
[2018-02-21] MEDS ORDERED: GLYCOPYRROLATE INJ 0.2 MG/ML 2 ML VIAL As Ordered (08:33)
[2018-02-21] MEDS ORDERED: MEPERIDINE INJ 25 MG/ML VIAL (J2175) As Ordered (09:17)
[2018-02-21] MEDS: MEPERIDINE INJ 25 MG/ML VIAL (J2175) IV ×2 (09:20→09:30)
[2018-02-21] MEDS ORDERED: PERCOCET 5MG/325MG TAB As Ordered (09:34)
[2018-02-21] MEDS ORDERED: fentaNYL 100 MCG/2 ML INJECTION (J3010) IV (09:45)
[2018-02-21] MEDS ORDERED: ONDANSETRON 4MG/2ML VIAL (J2405) IV (09:45)
[2018-02-21] MEDS ORDERED: PERCOCET 5MG/325MG TAB PO (09:45)
[2018-02-21] MEDS: ALPRAZolam 0.25 MG TAB PO (12:01)
[2018-02-24 15:28] LABS: HPV HYBRID CAPTURE II Negative (Negative)
== END 2018-02-21 12:42 | disposition home or self-care (01) ==
LOC: M SDC 06:25
DX: T83.32XA Displacement of intrauterine contraceptive device, initial encounter (principal); D64.9 Anemia, unspecified; I10 Essential (primary) hypertension; F41.0 Panic disorder [episodic paroxysmal anxiety]; G43.909 Migraine, unspecified, not intractable, without status migrainosus; H02.89 Other specified disorders of eyelid; T88.59XD Other complications of anesthesia, subsequent encounter; Z88.8 Allergy status to other drugs, medicaments and biological substances; Z79.899 Other long term (current) drug therapy; Z86.718 Personal history of other venous thrombosis and embolism; Z86.59 Personal history of other mental and behavioral disorders; Z98.51 Tubal ligation status
CPT/HCPCS: 58679

== ENCOUNTER → 2018-05-22 | Outpatient (CLI) | payer OTHER ==
[2018-05-22 18:55] LABS: HEMATOCRIT 39.1 % (36.0-47.0); HEMOGLOBIN 12.2 g/dl (12.0-15.5); MEAN CORPUSCULAR HEMOGLOBIN 25.6 pg (27.0-33.0); MEAN CORPUSCULAR HGB CONC 31.2 g/dl (32.0-36.5); PLATELET COUNT, AUTOMATED 337 10^3/uL (150-450); RED BLOOD COUNT 4.77 10^6/uL (4.00-5.40); RED CELL DISTRIBUTION WIDTH 15.2 % (11.5-14.5); WHITE BLOOD COUNT 9.3 10^3/uL (4.0-10.0)
[2018-05-22 19:22] LABS: PROLACTIN 5.9 NG/ML
== END ==
LOC: M SMT 14:51
DX: N91.2 Amenorrhea, unspecified (principal)
CPT/HCPCS: 84146

== ENCOUNTER → 2018-08-20 | Outpatient (CLI) | payer OTHER ==
[~2018-08-20] MED LIST changes: +EFFE37.5 PO; -EFFE37.527 PO; +FERR325T3 PO; -PANT40TA2 PO; +PANT40TA3 PO
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
== END ==
LOC: M LRY 13:21
PROVIDERS: ATTEND Nurse Practitioner Family
DX: S39.92XA Unspecified injury of lower back, initial encounter (principal); W10.9XXA Fall (on) (from) unspecified stairs and steps, initial encounter; Y92.009 Unspecified place in unspecified non-institutional (private) residence as the place of occurrence of the external cause
CPT/HCPCS: 72220; 96372; G0463; J1885

== ENCOUNTER → 2018-10-26 | Outpatient (REF) | payer OTHER | LOC: M SFHCLERA 10:27 | PROVIDERS: ATTEND Physician Assistant | DX: R52 Pain, unspecified (principal) ==

== ENCOUNTER → 2018-12-15 | Outpatient (REF) | payer OTHER ==
[~2018-12-15] MED LIST changes: -ASPI1TAB PO; +ASPI81TA26 PO; +PROP10TA55 PO; -PROP10TAB PO
== END ==
LOC: M SFHCLERA 09:30
PROVIDERS: ATTEND Nurse Practitioner Family
DX: R68.89 Other general symptoms and signs (principal)